=== PATIENT | female | born 1960 | race Caucasian/White ===

== ENCOUNTER 2018-02-11 11:21 | Observation (INO) ==
--- NOTE | 2018-02-11 12:01 | Emergency Department Note ---
Disposition Clinical Impression: Bradycardia Chest pain Qualifiers: Chest pain type: unspecified Qualified Code(s): R07.9 - Chest pain, unspecified Disposition: Admitted As Inpatient Condition: Good Forms: ED Satisfaction Letter Time of Disposition: 14:47 Chest Pain HPI - General Chief Complaint: ED Chest Pain Stated Complaint: chest pain Time Seen by Provider: 02/11/18 11:36 Source: patient Limitations: no limitations Vital Signs Reviewed: Yes Nursing Notes Reviewed: Yes - History of Present Illness HPI Narrative: 58-year-old white female presents with chest pain. Describes chest pressure in the middle of her chest for a couple weeks that is constant and intermittently worse with lying down flat also describes left "chest pain above the heart" that started last night. She had 6 episodes of stabbing pain that occurred randomly. Mid chest pain and left chest pain do not occur together. Patient reports associated symptoms of headache, lightheadedness, and nausea without vomiting. Patient went to her PCP Dr. Mcknight for the chest pressure and was told that she has a low heart rate in the 50s. They got an EKG which was normal. They are currently in the process of getting insurance approval for a heart monitor. Patient currently has a UTI for which she is taking clindamycin and Macrobid. Denies shortness of breath, fever, syncope, swelling, numbness, tingling. Former smoker, quit in 1998. Occasional wine, denies drugs. Patient reports medical history of fibromyalgia and colectomy due to diverticulitis. Denies diabetes, hypertension, hyperlipidemia, any family history of heart disease. Severity scale (1-10): 2 - Related Data Home Medications Medication Instructions Recorded Confirmed No Known Home Drugs 07/31/17 07/31/17 Allergies Allergy/AdvReac Type Severity Reaction Status Date / Time nitroglycerin Allergy Severe See Verified 02/11/18 14:34 Comments acetaminophen [From Percocet] Allergy Itching Verified 07/31/17 09:57 ciprofloxacin [From Cipro] Allergy See Verified 07/31/17 09:57 Comments codeine Allergy See Verified 07/31/17 09:57 Comments metronidazole [From Flagyl] Allergy See Verified 07/31/17 09:57 Comments ofloxacin [From Floxin] Allergy See Verified 07/31/17 09:57 Comments Oxycodone [From Percocet] Allergy Itching Verified 01/25/18 09:57 tegaserod [From Zelnorm] Allergy See Verified 07/31/17 09:57 Comments aspirin AdvReac Syncope Verified 02/11/18 13:13 All systems ED: reviewed and negative except as stated. Chest Pain PMH - Past Medical History Medical history: Reports: asthma, fibromyalgia, other Surgical history: Reports: other Psychiatric history: Reports: no psych history HEEL STAINER history: Reports: no HEEL STAINER history - Social History Smoking Status: Former smoker Alcohol use: Reports: occasionally Drug use: Reports: none Physical Exam - General Limitations: no limitations General appearance: alert, in no apparent distress - Head Head exam: atraumatic, normocephalic, normal inspection - Eye Eye exam: Present: PERRL, EOMI. Absent: normal appearance (Conjunctival hyperemia ) - Neck Neck exam: Present: normal inspection, full ROM, trachea midline - Chest Chest inspection: Present: normal inspection, symmetric chest wall rise. Absent : tenderness (No pain to palpation of the mid chest or left chest.) - Respiratory Respiratory exam: Present: normal lung sounds bilaterally. Absent: respiratory distress - Cardiovascular Cardiovascular exam: Present: regular rate, normal rhythm, normal heart sounds - Abdominal Exam Abdominal exam: Present: soft, Non-Tender, normal bowel sounds. Absent: tenderness, distention, guarding, rebound, rigidity - Extremities Exam Extremities exam: Present: normal inspection, full ROM. Absent: tenderness, pedal edema - Neurological Exam Neurological exam: Present: alert, oriented X3, CN II-XII intact - Psychiatric Psychiatric exam: Present: normal affect, normal mood - Skin Skin exam: Present: warm, dry, intact, normal color Course Course Narrative: 58-year-old female presents for chest pain. Patient denies any cardiovascular history. Patient is alert and oriented, hemodynamically stable, and nontoxic appearance. Heart rate is 70. Cardiovascular and lung exam are unremarkable. Will order cardiac workup, D-dimer, hepatic panel and lipase. - Reevaluation(s) Reevaluation #1: Cardiac and GI workup is negative. Patient still complaining of chest pressure. Dr. Benites spoke with patient, will provide aspirin and GI cocktail, and repeat troponin at 2 hour timepoint. Family is now in the room, states that patient will fall asleep during conversation. Patient has a documented history of allergy to aspirin. Patient states that she passed out when she took aspirin at age 17 and was told that she has an allergy. Will provide the aspirin and watch for syncope or any other adverse effects. Time: 13:14 Reevaluation #2: Checking on patient at 13:45, patient states no change in chest pressure. Did not have syncope or any other adverse effect from aspirin. Will provide one dose of sublingual nitroglycerin. Patient got hypotensive and heart rate decreased to 15. Patient was given 0.5 atropine and heart rate increased to 88. Repeat EKG shows normal sinus rhythm with heart rate 88. Spoke with key punch teacher Dr. Lopez who recommended evaluation by hospitalist rather than key punch teacher. Spoke with hospitalist Dr. Reyes who agrees to admit. Informed patient of admission. Patient is laughing and talking on the phone. Patient voiced understanding and is agreeable to admission. Time: 14:47 Vital Signs Temperature 97.9 F 02/11/18 11:22 Pulse Rate 71 02/11/18 11:22 Respiratory Rate 18 02/11/18 11:22 Blood Pressure 116/71 02/11/18 11:22 O2 Sat by Pulse Oximetry 97 02/11/18 11:22 Temperature 97.9 F 02/11/18 11:38 Pulse Rate 67 02/11/18 11:45 Respiratory Rate 16 02/11/18 11:45 Blood Pressure 131/74 02/11/18 11:45 O2 Sat by Pulse Oximetry 96 02/11/18 11:45 Oxygen Delivery Oxygen Delivery Room Air Chest Pain - Medical Records Medical records reviewed: Yes I reviewed the patient's medical records. - Lab Data Lab results reviewed: Yes I reviewed the patient's lab results. Result diagrams: 02/11/18 11:24 Lab Results 02/11/18 02/11/18 Range/Units 11:24 11:53 WBC 6.2 (4.3-11.1) K/mcL RBC 4.11 (3.82-4.97) M/mcL Hgb 12.5 (11.5-15.4) g/dL Hct 38.2 (35.3-44.9) % MCV 92.9 (83.0-100.0) fL MCH 30.4 (28.0-33.3) pg MCHC 32.7 (31.6-35.5) g/dL RDW 13.2 (11.5-14.5) % Plt Count 235 (140-400) K/mcL MPV 9.1 L (9.4-12.4) fL Immature Gran % 0.2 (0-4) % Seg Neutrophils % 78.3 % Lymphocytes % 13.5 % Monocytes % 4.8 % Eosinophils % 2.9 % Basophils % 0.3 % Neutrophils # 4.9 (1.6-8.9) K/mcL Lymphocytes # 0.8 (0.6-4.6) K/mcL Monocytes # 0.3 (0.0-1.3) K/mcL Eosinophils # 0.2 (0.0-0.6) K/mcL Basophils # 0.0 (0.0-0.2) K/mcL D-Dimer 306 (0-500) ng/mLFEU - Radiology Data Radiology results reviewed: Yes I reviewed the patient's radiology results. Chest x-ray 02/11/2018. No acute process. - EKG Data EKG attestation: Yes I reviewed and interpreted this EKG. EKG results narrative: EKG 02/11/2018 11:26. Ectopic atrial rhythm. Heart rate 70. No ST segment elevation or depression. No significant change from prior EKG 09/23/2013. EKG 02/11/2018 14:18. Sinus rhythm. Heart rate 88. No ST segment elevation or depression. No significant change from prior EKG.
[2018-02-11 12:10] LABS: Basophils % 0.3 %; Eosinophils # 0.2 K/mcL (0.0-0.6); Eosinophils % 2.9 %; Hematocrit 38.2 % (35.3-44.9); Hemoglobin 12.5 g/dL (11.5-15.4); Immature Granulocytes % 0.2 % (0-4); Lymphocytes # 0.8 K/mcL (0.6-4.6); Lymphocytes % 13.5 %; Mean Corpuscular HGB Conc 32.7 g/dL (31.6-35.5); Mean Corpuscular Hemoglobin 30.4 pg (28.0-33.3); Mean Corpuscular Volume 92.9 fL (83.0-100.0); Mean Platelet Volume 9.1 fL (9.4-12.4); Monocytes # 0.3 K/mcL (0.0-1.3); Monocytes % 4.8 %; Neutrophils # 4.9 K/mcL (1.6-8.9); Platelet Count 235 K/mcL (140-400); Red Blood Count 4.11 M/mcL (3.82-4.97); Red Cell Distribution Width 13.2 % (11.5-14.5); Segmented Neutrophils % 78.3 %
[2018-02-11 12:30] LABS: Troponin I < 0.03 ng/mL (< 0.04)
[2018-02-11 12:53] LABS: Alanine Aminotransferase 26 Units/L (7-52); Albumin 4.1 g/dL (3.5-5.7); Albumin/Globulin Ratio 1.4 (1.1-2.2); Alkaline Phosphatase 89 Units/L (34-104); Aspartate Amino Transferase 21 Units/L (13-39); BUN/Creatinine Ratio 10 (6-26); Bilirubin,Direct 0.1 mg/dL (0.0-0.2); Bilirubin,Indirect 0.6 mg/dL (0.0-1.2); Bilirubin,Total 0.7 mg/dL (0.3-1.0); Blood Urea Nitrogen 8 mg/dL (6-20); Calcium 9.4 mg/dL (8.6-10.3); Carbon Dioxide 27 mEq/L (23-29); Chloride 105 mEq/L (98-107); Globulin 2.9 g/dL (2.4-3.5); Glucose 95 mg/dL (70-105); Lipase 35 Units/L (11-82); Osmolality,Calculated 288 (280-300); Potassium 3.6 mEq/L (3.5-5.1); Sodium 140 mEq/L (136-145); eGFR For Non-African Americans > 60 (> 60)
[2018-02-11] MEDS ORDERED: Aspirin 81 MG TAB.CHEW PO STA (12:59)
[2018-02-11] MEDS ORDERED: GI Cocktail 40 ML EACH PO ONE (13:00)
--- NOTE | 2018-02-11 13:23 | Emergency Department Note ---
Disposition Clinical Impression: Chest pain Qualifiers: Chest pain type: unspecified Qualified Code(s): R07.9 - Chest pain, unspecified Disposition: Still a Patient Referrals: Eagle Mcknight MD [Primary Care Provider] - Forms: ED Satisfaction Letter General Adult HPI - General Chief complaint: ED Chest Pain Stated complaint: chest pain Time Seen by Provider: 02/11/18 11:36 Source: patient Limitations: no limitations - History of Present Illness Pain Scale: 2 - Related Data Home Medications Medication Instructions Recorded Confirmed No Known Home Drugs 07/31/17 07/31/17 Allergies Allergy/AdvReac Type Severity Reaction Status Date / Time nitroglycerin Allergy Severe See Verified 02/11/18 14:34 Comments acetaminophen [From Percocet] Allergy Itching Verified 07/31/17 09:57 ciprofloxacin [From Cipro] Allergy See Verified 07/31/17 09:57 Comments codeine Allergy See Verified 07/31/17 09:57 Comments metronidazole [From Flagyl] Allergy See Verified 07/31/17 09:57 Comments ofloxacin [From Floxin] Allergy See Verified 07/31/17 09:57 Comments Oxycodone [From Percocet] Allergy Itching Verified 07/31/17 09:57 tegaserod [From Zelnorm] Allergy See Verified 07/31/17 09:57 Comments aspirin AdvReac Syncope Verified 02/11/18 13:13 Past Medical History - Past Medical History Medical history: Reports: asthma, fibromyalgia, other Surgical history: Reports: other Psychiatric history: Reports: no psych history 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 She was originally at hr 90s and blood pressure sysotlic of 120s. Anisa stated she started to "feel bad" and started to have bradycardia with a heart rate of 30s on the monitor and then patient went down to 15, never became asystolic as she was conscious and talking during the episodes. We deliver 0.5 mg atropine and pushed 1L of fluids and she returned to a heart rate of 90s. She states that her chest pain has resolved, but is slowly comnig back now. I believe this reaction is likley due to the nitro trial and have advised patient not to medicate with nitro in the future. Aleksandra states that she has done this once before and it was after anesthesia adminsitration for a endoscope and that she became bradycardiac and then returned to normal rate. Anisa will be admittd to [facility]. [facility]ds has been consulted Time: 14:41 Vital Signs Temperature 97.9 F 02/11/18 11:22 Pulse Rate 71 02/11/18 11:22 Respiratory Rate 18 02/11/18 11:22 Blood Pressure 116/71 02/11/18 11:22 O2 Sat by Pulse Oximetry 97 02/11/18 11:22 Temperature 97.9 F 02/11/18 11:38 Pulse Rate 85 02/11/18 14:26 Respiratory Rate 16 02/11/18 14:26 Blood Pressure 115/67 02/11/18 14:26 O2 Sat by Pulse Oximetry 100 02/11/18 14:26 Oxygen Delivery Oxygen Delivery Room Air Medical Decision Making - Lab Data Result diagrams: 02/11/18 11:24 02/11/18 11:24 Lab Results 02/11/18 02/11/18 02/11/18 Range/Units 11:24 11:24 11:53 WBC 6.2 (4.3-11.1) K/mcL RBC 4.11 (3.82-4.97) M/mcL Hgb 12.5 (11.5-15.4) g/dL Hct 38.2 (35.3-44.9) % MCV 92.9 (83.0-100.0) fL MCH 30.4 (28.0-33.3) pg MCHC 32.7 (31.6-35.5) g/dL RDW 13.2 (11.5-14.5) % Plt Count 235 (140-400) K/mcL MPV 9.1 L (9.4-12.4) fL Immature Gran % 0.2 (0-4) % Seg Neutrophils % 78.3 % Lymphocytes % 13.5 % Monocytes % 4.8 % Eosinophils % 2.9 % Basophils % 0.3 % Neutrophils # 4.9 (1.6-8.9) K/mcL Lymphocytes # 0.8 (0.6-4.6) K/mcL Monocytes # 0.3 (0.0-1.3) K/mcL Eosinophils # 0.2 (0.0-0.6) K/mcL Basophils # 0.0 (0.0-0.2) K/mcL D-Dimer 306 (0-500) ng/mLFEU Sodium 140 (136-145) mEq/L Potassium 3.6 (3.5-5.1) mEq/L Chloride 105 (98-107) mEq/L Carbon Dioxide 27 (23-29) mEq/L BUN 8 (6-20) mg/dL Creatinine 0.78 (0.60-1.20) mg/dL Est GFR ( Amer) > 60 (> 60) Est GFR (Non-Af Amer) > 60 (> 60) BUN/Creatinine Ratio 10 (6-26) Glucose 95 (70-105) mg/dL Calculated Osmolality 288 (280-300) Calcium 9.4 (8.6-10.3) mg/dL Total Bilirubin 0.7 (0.3-1.0) mg/dL Direct Bilirubin 0.1 (0.0-0.2) mg/dL Indirect Bilirubin 0.6 (0.0-1.2) mg/dL AST 21 (13-39) Units/L ALT 26 (7-52) Units/L Alkaline Phosphatase 89 (34-104) Units/L Troponin I < 0.03 (< 0.04) ng/mL Serum Total Protein 7.0 (6.4-8.9) g/dL Albumin 4.1 (3.5-5.7) g/dL Globulin 2.9 (2.4-3.5) g/dL Albumin/Globulin Ratio 1.4 (1.1-2.2) Lipase 35 (11-82) Units/L 02/11/18 Range/Units 13:26 WBC (4.3-11.1) K/mcL RBC (3.82-4.97) M/mcL Hgb (11.5-15.4) g/dL Hct (35.3-44.9) % MCV (83.0-100.0) fL MCH (28.0-33.3) pg MCHC (31.6-35.5) g/dL RDW (11.5-14.5) % Plt Count (140-400) K/mcL MPV (9.4-12.4) fL Immature Gran % (0-4) % Seg Neutrophils % % Lymphocytes % % Monocytes % % Eosinophils % % Basophils % % Neutrophils # (1.6-8.9) K/mcL Lymphocytes # (0.6-4.6) K/mcL Monocytes # (0.0-1.3) K/mcL Eosinophils # (0.0-0.6) K/mcL Basophils # (0.0-0.2) K/mcL D-Dimer (0-500) ng/mLFEU Sodium (136-145) mEq/L Potassium (3.5-5.1) mEq/L Chloride (98-107) mEq/L Carbon Dioxide (23-29) mEq/L BUN (6-20) mg/dL Creatinine (0.60-1.20) mg/dL Est GFR ( Amer) (> 60) Est GFR (Non-Af Amer) (> 60) BUN/Creatinine Ratio (6-26) Glucose (70-105) mg/dL Calculated Osmolality (280-300) Calcium (8.6-10.3) mg/dL Total Bilirubin (0.3-1.0) mg/dL Direct Bilirubin (0.0-0.2) mg/dL Indirect Bilirubin (0.0-1.2) mg/dL AST (13-39) Units/L ALT (7-52) Units/L Alkaline Phosphatase (34-104) Units/L Troponin I < 0.03 (< 0.04) ng/mL Serum Total Protein (6.4-8.9) g/dL Albumin (3.5-5.7) g/dL Globulin (2.4-3.5) g/dL Albumin/Globulin Ratio (1.1-2.2) Lipase (11-82) Units/L Attestation Statement - Attestation Attestation: I examined this patient and my medical decision-making was reviewed with the Resident Physician. I agree with the documented findings, disposition and treatment plan as described except to the extent set forth below. 58 year old dominic orozconets to the ED with complanits of chest pressure in the middle of her chest which radites into her epigastrium. She has one risk factor for ACS being her age. PAtinet states that it has been occuring in increasing frequency but not during exertion. Anisa states her only other abdominal surgery was appendectomy and hysterectomy. Anisa is currently on levauqin for UTI. Anisa stats that she is trying to have outpatient followu for cardaic testing. Inital troponin and D-dimer ar negative. WEw ill treat with aSA and GI cocktail to see if it will relieve the symptoms and do a repeat troponin and she is a low risk for ACS. We will re-evlaute.
[2018-02-11] MEDS ORDERED: Nitroglycerin 0.4 MG TAB.SUBL SL PRN (13:47)
[2018-02-11] MEDS ORDERED: 0.9 % Sodium Chloride 1,000 ML ONE (14:14)
[2018-02-11] MEDS ORDERED: *HR* Atropine Sulfate 1 MG/10 ML SYRINGE IVP STA (14:58)
[2018-02-11] MEDS ORDERED: 0.9 % Sodium Chloride 1,000 ML IVC ONE ×2 (14:58→23:45)
[2018-02-11] MEDS ORDERED: Naloxone 0.4 MG/ML INJ IVP PRN (16:01)
[2018-02-11] MEDS ORDERED: Acetaminophen 325 MG TABLET PO PRN (16:01)
[2018-02-11] MEDS ORDERED: *HR* Atropine Sulfate 1 MG/10 ML SYRINGE IV ONE (16:09)
--- NOTE | 2018-02-11 16:36 | Internal Med History&Physical ---
Date of Encounter: 02/11/18 Time of Encounter: 16:32 Internal Medicine - H&P: HPI Chief complaint: Chest pain Admitted From: Emergency Dept Plans for Post Hospital Care: Home History of present illness: Ms. Mathews is a 58 year old female patient with no significant past medical history who presented to the ER with complaints of chest pain. Has been going on for couple of weeks now and has become more persistent. She reports pain as central in location and sometimes radiates to the left side of the chest. Over the past couple of days it has been present pretty much throughout the day. 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 She came to the ER and was given nitroglycerin which she has previously taken without any issues. Soon after she was given nitroglycerin in the ER, her heart rate went down and patient became hypotensive. She was given atropine with improvement in her heart rate. Patient reports that she rates the fitness monitor with heart rate and she has noted that her heart rate has been in the 40s sometimes. She says that her chest pain improved when her heart rate improved after she received atropine and it has returned now. She denies any dizziness or lightheadedness. She denies any palpitations. She had seen her primary care provider for her episodes of low heart rate and was being referred to cardiology for Holter monitor, stress test. She also notes that she had trouble coming out of anesthesia when she had sinus surgery and had a Holter monitor placed at that time. No abnormalities were found but the supervisor publications then had prescribed nitroglycerin for her which seemed to improve her symptoms. She had no issues taking nitroglycerin at that time. She has had other surgeries since then without any issues with anesthesia. She denies any cough or shortness of breath. Denies any dizziness at this time. She does have a headache. She also reports an episode of intense pain in the left side of the chest that took her breath away. She has recently been on antibiotics for tooth infection and UTI.-Clindamycin and Macrobid. Past Med Surg Social Fam HX - Past Medical History Attestation: Yes The following information was validated with the patient. Source: patient Medical history: asthma, fibromyalgia, other Additional medical history: diverticulitis, constipation Psychiatric history: no psych history - Past Surgical History Surgical History: other Additional surgical history: bladder tuck, rectocele, carpel tunnel, sinus surgery - Social History Smoking Status: Former smoker Smokeless Tobacco Status: No Alcohol use: occasionally Drug use: none - Additional Family History Additional family history: Her mother had a stroke and maternal aunt had episodes of angina Internal Medicine - H&P: Meds Azelastine 0.1% Nasal Roselle [Astelin] 1 spr NS BID 02/11/18 [History] Cetirizine HCl [Zyrtec] 10 mg PO DAILY PRN 02/11/18 [History] Clindamycin HCl [Clindamycin HCl] 150 mg PO TID 02/11/18 [History] Cranberry Conc/C/Bacill Coag [Azo Cranberry Tablet] 1 tab PO Q12H 02/11/18 [ History] Loratadine [Claritin] 10 mg PO DAILY PRN 02/11/18 [History] Mometasone Furoate [Nasonex] 1 spr NS BID 02/11/18 [History] Nitrofurantoin (BID) [Macrobid] 100 mg PO BID 02/11/18 [History] 3 Allergy/AdvReac Type Severity Reaction Status Date / Time nitroglycerin Allergy Severe See Verified 02/11/18 14:34 Comments acetaminophen [From Percocet] Allergy Itching Verified 07/31/17 09:57 ciprofloxacin [From Cipro] Allergy See Verified 07/31/17 09:57 Comments codeine Allergy See Verified 07/31/17 09:57 Comments metronidazole [From Flagyl] Allergy See Verified 07/31/17 09:57 Comments ofloxacin [From Floxin] Allergy See Verified 07/31/17 09:57 Comments Oxycodone [From Percocet] Allergy Itching Verified 07/31/17 09:57 tegaserod [From Zelnorm] Allergy See Verified 07/31/17 09:57 Comments aspirin AdvReac Syncope Verified 02/11/18 13:13 All Systems PM: A 10-system review of systems was performed and is negative for pertinent findings except as documented above in the HPI. - Constitutional Constitutional: no chills, no fever(s), no night sweats - EENT Eyes: no change in vision, no discharge, no pain, no photophobia Ears: no ear discharge, no ear pain, no tinnitus Nose, mouth and throat: no dysphagia, no nasal discharge, no neck pain, no sore throat - Cardiovascular Cardiovascular ROS IM: chest pain, lightheadedness, no diaphoresis, no dyspnea, no palpitations, no syncope - Respiratory Respiratory: no cough, no dyspnea, no wheezing, no excessive phlegm production - Gastrointestinal Gastrointestinal: no abdominal pain, no diarrhea, no hematemesis, no hematochezia, no melena, no nausea, no vomiting - Genitourinary Genitourinary: no change in urinary stream, no dysuria, no flank pain, no hematuria - Musculoskeletal Musculoskeletal ROS IM: no numbness, no tingling - Integumentary Integumentary IM: no rash, no unusual bruising - Neurological Neurological ROS: no confusion, no convulsions, no focal weakness, no numbness, no tingling, no tremor(s) - Hematologic/Lymphatic Hematologic/Lymphatic: no easy bruising - Constitutional Vitals: Temp Pulse Resp BP Pulse Ox 97.9 F 64 15 120/57 98 02/11/18 15:33 02/11/18 15:33 02/11/18 15:33 02/11/18 15:33 02/11/18 15:33 General appearance: Present: cooperative, mild distress, A&O X 3, answers questions appropriately - Head Head exam: Present: atraumatic, normocephalic - Eye Eye exam: Present: EOMI, PERRL, conjuntiva pink, sclera anicteric - Neck Neck exam general surgery: Present: supple, trachea midline. Absent: lymphadenopathy - Respiratory Respiratory exam: Present: CTAB. Absent: accessory muscle use, rales, rhonchi, wheezes - Cardiovascular Cardiovascular exam: Present: RRR, +S1, +S2. Absent: diastolic murmur, gallop, rubs, systolic murmur - GI/Abdominal GI/Abdominal exam: Present: normal bowel sounds, soft, no peritoneal signs. Absent: distended, tenderness - Extremities Exam Extremities exam: Present: warm, radial pulses palpable and symmetrical. Absent : calf tenderness, cyanotic, pedal edema - Neurological Exam Neurological exam: Present: CN II-XII intact, oriented X3, no focal deficits. Absent: facial droop, speech deficit - Psychiatric Psychiatric exam: Present: anxious - Skin Skin exam: Present: dry, intact Internal Med - H&P Results - Labs CBC & Chem 7: 02/11/18 11:24 02/11/18 11:24 - EKG Data EKG shows normal: sinus rhythm - EKG Data EKG comments: 02/11/18 16:41 Reviewed EKGs. Initial EKG showed ectopic atrial rhythm without any AV block. Repeat EKG shows normal sinus rhythm. - Impressions Impressions Chest X-Ray 02/11/18 11:24 IMPRESSION: No acute process. D/ / Ceasar Cooley MD / Ceasar Cooley MD Interpreting Provider: Ceasar Cooley MD - Assessment and plan (1) Chest pain Current Visit: Yes Status: Acute Assessment and plan: Acute onset chest pain. Atypical symptoms. Will monitor with telemetry. No EKG changes noted. Plan for stress test tomorrow if troponins continue to be negative. 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 Stress could be playing a role in her chest pain. No improvement with GI cocktail. She did report some improvement when her heart rate improved after she was given atropine. Whether this was related to use of nitroglycerin or atropine is unclear. We will avoid nitroglycerin for now given her adverse reaction while in the ER. We will use morphine if needed to treat pain. Qualifiers: Chest pain type: precordial pain Qualified Code(s): R07.2 - Precordial pain (2) Bradycardia Current Visit: Yes Status: Acute Assessment and plan: Episode of bradycardia while in the ER and reported bradycardia episodes at home. Monitor with telemetry. We will also get 2-D echocardiogram. Check thyroid profile. Consider Holter monitor/event monitor at discharge if no adverse events noted during this hospitalization - Time Spent With Patient Total time spent is greater than 50% in coordination of care (as documented) at patient's floor/unit and/or counseling patient:
[2018-02-11] MEDS ORDERED: Loratadine 10 MG TABLET PO PRN (16:51)
[2018-02-11] MEDS ORDERED: NON-FORMULARY MEDICATION 1 EACH EACH (Cetirizine Hcl [Zyrtec] 10 MG) PO PRN (16:51)
[2018-02-11] MEDS: [UNRECOGNIZED DRUG - OTHER] PO SCH (19:15)
[2018-02-11] MEDS ORDERED: Ondansetron 4 MG/2 ML VIAL IVP PRN (19:40)
[2018-02-11] MEDS: Nitrofurantoin (BID) 100 MG CAPSULE PO SCH (19:58)
[2018-02-11] MEDS: Azelastine 0.1% Nasal Spray 30 ML BOTTLE NS SCH (19:59)
[2018-02-11] MEDS: Fluticasone Propionate Nasal 50 MCG/SPRAY BOTTLE NS SCH (20:00)
[2018-02-11] MEDS ORDERED: Ibuprofen 200 MG TABLET PO PRN (23:47)
[2018-02-12] MEDS: [UNRECOGNIZED DRUG - OTHER] PO SCH (05:09)
[2018-02-12] MEDS ORDERED: Regadenoson 0.4 MG/5 ML SYRINGE IVP ONE (05:40)
[2018-02-12 05:47] LABS: Chol/HDL Ratio 2.9 (0-4.9)
[2018-02-12 05:59] LABS: Thyroid Stimulating Hormone 1.478 mcIU/mL (0.340-5.600)
--- NOTE | 2018-02-12 06:42 | Electrocardiograph Report ---
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
--- NOTE | 2018-02-12 08:02 | Electrocardiograph Report ---
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
[2018-02-12] MEDS: Fluticasone Propionate Nasal 50 MCG/SPRAY BOTTLE NS SCH (09:40)
[2018-02-12] MEDS: Azelastine 0.1% Nasal Spray 30 ML BOTTLE NS SCH (09:40)
[2018-02-12] MEDS: Nitrofurantoin (BID) 100 MG CAPSULE PO SCH (09:41)
--- NOTE | 2018-02-12 14:25 | Discharge Summary ---
- NOTES TO OUTPATIENT PROVIDER Notes to Outpatient Provider: Patient was hospitalized after she presented to the ER with complaints of chest pain. She was evaluated with an EKG which did not show any acute ST segment changes. She received nitroglycerin in the ER and then suddenly became bradycardic and hypotensive with decreasing consciousness. She was immediately given atropine with improvement in her heart rate. She has never had this kind of reaction to nitroglycerin but she was observed in the hospital. So far she has not had repeat episodes of severe bradycardia. Her thyroid hormones have been normal. Troponins have also been negative. She underwent cardiac stress test today which showed no signs of ischemia. Her echocardiogram shows normal ejection fraction. At this time patient is clinically stable to discharge. Her chest pain could be related to increased stress as patient has been working night shifts without proper sleep for the past 18 months. Recommend treatment and counseling for this as outpatient. Recommend outpatient follow-up with cardiology with Holter monitor/ event monitor for further evaluation. Patient also reports nausea which is chronic and has been taking antinausea medications for the past 3 months. At this time I would recommend consultation with GI for possible upper GI endoscopy as outpatient. Orders not resulted at time of discharge: Pending orders 02/11/18 16:48 NM josé miguel perf SPECT multi [NM] Routine Date of Encounter: 02/12/18 Time of Encounter: 14:23 - Discharge Diagnosis (1) Chest pain Priority: Primary Status: Acute Qualifiers: Chest pain type: precordial pain Qualified Code(s): R07.2 - Precordial pain (2) Bradycardia Priority: Secondary Status: Acute Hospital course: Ms. Mathews is a 58 year old female Patient with history of asthma, fibromyalgia was hospitalized after she presented to the ER with complaints of chest pain. She was evaluated with an EKG which did not show any acute ST segment changes. She received nitroglycerin in the ER and then suddenly became bradycardic and hypotensive with decreasing consciousness. She was immediately given atropine with improvement in her heart rate. She has never had this kind of reaction to nitroglycerin but she was observed in the hospital. So far she has not had repeat episodes of severe bradycardia. Her thyroid hormones have been normal. Troponins have also been negative. She underwent cardiac stress test today which showed no signs of ischemia. Her echocardiogram shows normal ejection fraction. At this time patient is clinically stable to discharge. Recommend outpatient follow-up with cardiology with Holter monitor/event monitor for further evaluation. Patient also reports nausea which is chronic and has been taking antinausea medications for the past 3 months. At this time I would recommend consultation with GI for possible upper GI endoscopy as outpatient. Discharge discussed with: patient, family, nurse - Time Spent with Patient Total time spent providing and/or coordinating discharge services: Less than 30 minutes (25 min) - Discharge Medications Home Medications: Azelastine 0.1% Nasal [place] [Astelin] 1 spr NS BID 02/11/18 [History] Cetirizine HCl [Zyrtec] 10 mg PO DAILY PRN 02/11/18 [History] Clindamycin HCl 150 mg PO TID 02/11/18 [History] Cranberry Conc/C/Bacill Coag [Azo Cranberry Tablet] 1 tab PO Q12H 02/11/18 [ History] Mometasone Furoate [Nasonex] 1 spr NS BID 02/11/18 [History] Nitrofurantoin (BID) [Macrobid] 100 mg PO BID 02/11/18 [History] Allergies/Adverse Reactions: 3 Allergy/AdvReac Type Severity Reaction Status Date / Time nitroglycerin Allergy Severe See Verified 02/11/18 14:34 Comments acetaminophen [From Percocet] Allergy Itching Verified 07/31/17 09:57 ciprofloxacin [From Cipro] Allergy See Verified 07/31/17 09:57 Comments codeine Allergy See Verified 07/31/17 09:57 Comments metronidazole [From Flagyl] Allergy See Verified 07/31/17 09:57 Comments ofloxacin [From Floxin] Allergy See Verified 07/31/17 09:57 Comments Oxycodone [From Percocet] Allergy Itching Verified 07/31/17 09:57 tegaserod [From Zelnorm] Allergy See Verified 07/31/17 09:57 Comments aspirin AdvReac Syncope Verified 02/11/18 13:13 Date of admission: 02/11/18 14:54 Primary care physician: Eagle Mcknight MD Discharging clinician: Iesha Nick Anticipated date of discharge: 02/12/18 - Constitutional Vitals: Temp Pulse Resp BP Pulse Ox 98.2 F 71 17 89/45 96 02/12/18 11:06 02/12/18 11:06 02/12/18 11:06 02/12/18 11:09 02/12/18 11:06 General appearance: Present: cooperative, A&O X 3, pleasant, no acute distress, answers questions appropriately - Neck Neck exam general surgery: Present: supple, trachea midline. Absent: lymphadenopathy - Respiratory Respiratory exam: Present: CTAB. Absent: accessory muscle use, rales, rhonchi, wheezes - Cardiovascular Cardiovascular exam: Present: RRR, +S1, +S2. Absent: diastolic murmur, gallop, rubs, systolic murmur - GI/Abdominal GI/Abdominal exam: Present: normal bowel sounds, soft, no peritoneal signs. Absent: distended, tenderness - Extremities Exam Extremities exam: Present: warm, radial pulses palpable and symmetrical. Absent : calf tenderness, cyanotic, pedal edema - Patient Status Disposition: Home, Self-Care Condition: Good Functional capacity at discharge: independent ambulation Overall status at discharge: patient is progressing back to baseline - Discharge Instructions Instructions: Chest Pain (DC) Follow Up With: Eagle Mcknight MD [Primary Care Provider] - 03/05/18 10:00 am (1-2 weeks) - Diet and Activity Activity: increase activity as tolerated Diet: advance to your usual diet
[2018-02-12 15:24] VITALS: BP 109/70
--- NOTE | 2018-02-12 16:17 | Electrocardiograph Report ---
[address] [place] [address] Test Date: 2018-02-12 Pat Name: Rajani Mathews Department: 113 Room: 3B37 Gender: F [employer]ing [employer]ic: : 1960 Requested By: Iesha Nick Order Number: [id number] Reading MD: Ana Lopez Measurements Intervals [place] Rate: 70 P: -34 ND: 146 QRS: 16 QRSD: 90 T: 12 QT: 392 QTc: 412 Interpretive Statements SINUS RHYTHM NONSPECIFIC ST ABNORMALITIES Electronically Signed On 02-12-2018 16:16:15 EDT by Ana Lopez
--- NOTE | 2018-02-12 16:21 | Electrocardiograph Report ---
[address] [place] [address] Test Date: 2018-02-11 Pat Name: Rajani Mathews Department: 113 Room: 3B Gender: F Vp [employer]: [id number] : 1960 Requested By: Ilana Reyes Order Number: [id number] Reading MD: Ana Lopez Measurements Intervals [place] Rate: 63 P: -8 [place]: 133 QRS: 29 QRSD: 85 T: 35 QT: 407 QTc: 415 Interpretive Statements ECTOPIC ATRIAL RHYTHM NONSPECIFIC ST ABNORMALITIES Electronically Signed On 02-12-2018 16:19:54 EDT by Ana Lopez
== END 2018-02-12 16:10 | disposition home or self-care (01) ==
LOC: 3BNU 11:21 → EMEROO 11:21 → 3BNU 15:11
PROVIDERS: ADMIT Internal Medicine; ATTEND Internal Medicine

== ENCOUNTER 2018-03-15 16:29 | Observation (INO) ==
--- NOTE | 2018-03-15 17:05 | Emergency Department Note ---
Disposition Clinical Impression: TIA (transient ischemic attack) Chest pain Qualifiers: Chest pain type: precordial pain Qualified Code(s): R07.2 - Precordial pain Disposition: Admitted As Inpatient Condition: Good Instructions: Chest Pain (ED), Transient Ischemic Attack (ED) Referrals: Eagle Mcknight MD [Primary Care Provider] - Forms: ED Satisfaction Letter Time of Disposition: 18:38 General Adult HPI - General Chief complaint: ED Chest Pain Stated complaint: Chest Pain Nausea Time Seen by Provider: 03/15/18 16:54 Source: patient Mode of arrival: ambulatory Limitations: no limitations - History of Present Illness HPI Narrative: This is a 58-year-old female who comes to emergency department with several complaints. She states that she has had midsternal chest pain that started about 2 hours prior to arrival. She also reports a headache that is more in the crown of her head, compared to a for head location of her typical headaches. She reports that 90 minutes prior to arrival she had the sudden onset of a 1 hour episode of confusion with dysarthria, where her friend states that her speech was slurred. She also reports bilateral facial pain along the mandibles. Pain Scale: 4 - Related Data Home Medications Medication Instructions Recorded Confirmed Azelastine 0.1% Nasal [place] 1 spr NS BID 02/11/18 02/11/18 [Astelin] Cetirizine HCl [Zyrtec] 10 mg PO DAILY PRN 02/11/18 02/11/18 Clindamycin HCl 150 mg PO TID 02/11/18 02/11/18 Cranberry Conc/C/Bacill Coag [Azo 1 tab PO Q12H 02/11/18 02/11/18 Cranberry Tablet] Mometasone Furoate [Nasonex] 1 spr NS BID 02/11/18 02/11/18 Nitrofurantoin (BID) [Macrobid] 100 mg PO BID 02/11/18 02/11/18 Allergies Allergy/AdvReac Type Severity Reaction Status Date / Time nitroglycerin Allergy Severe See Verified 02/11/18 14:34 Comments acetaminophen [From Percocet] Allergy Itching Verified 07/31/17 09:57 ciprofloxacin [From Cipro] Allergy See Verified 07/31/17 09:57 Comments codeine Allergy See Verified 07/31/17 09:57 Comments metronidazole [From Flagyl] Allergy See Verified 07/31/17 09:57 Comments ofloxacin [From Floxin] Allergy See Verified 07/31/17 09:57 Comments Oxycodone [From Percocet] Allergy Itching Verified 07/31/17 09:57 tegaserod [From Zelnorm] Allergy See Verified 07/31/17 09:57 Comments aspirin AdvReac Syncope Verified 02/11/18 13:13 All systems ED: reviewed and negative except as stated. Constitutional: Reports: other (Confusion) Cardiovascular: Reports: chest pain Neurological: Reports: headache, confusion, other (Dysarthria) Past Medical History - Past Medical History Medical history: Reports: asthma, fibromyalgia, other Surgical history: Reports: other Psychiatric history: Reports: no psych history CURVE CLEANER history: Reports: no CURVE CLEANER history - Social History Smoking Status: Former smoker Smokeless Tobacco Status: No Alcohol use: Reports: occasionally Drug use: Reports: none Physical Exam - General Limitations: no limitations General appearance: alert, in no apparent distress - Head Head exam: atraumatic, normocephalic, normal inspection - Eye Eye exam: Present: normal appearance, PERRL, EOMI. Absent: scleral icterus, conjunctival injection - Chest Chest inspection: Present: normal inspection, symmetric chest wall rise - Respiratory Respiratory exam: Present: normal lung sounds bilaterally - Cardiovascular Cardiovascular exam: Present: normal rhythm, bradycardia, normal heart sounds - Abdominal Exam Abdominal exam: Present: soft, Non-Tender. Absent: tenderness, distention, guarding, rebound, rigidity - Extremities Exam Extremities exam: Present: normal inspection, full ROM. Absent: tenderness, pedal edema - Neurological Exam Neurological exam: Present: alert, oriented X3, CN II-XII intact. Absent: motor sensory deficit - Expanded Neurological Exam Patient oriented to: Present: person, place, time Speech: Present: fluid speech Cranial nerves: EOM function (II, III, IV, ): Normal, facial sensation (V): Normal, facial palsy (VII): Normal, gag reflex (IX): Normal, spinal accessory function (XI): Normal, tongue deviation (XII): Normal Cerebellar function: finger to nose: Normal, heel to phelps: Normal Motor strength - LUE: 5/5 Motor strength - RUE: 5/5 Motor strength - LLE: 5/5 Motor strength - RLE: 5/5 Upper motor neuron exam: pronator drift: Absent bilaterally - Psychiatric Psychiatric exam: Present: normal affect, normal mood - Skin Skin exam: Present: warm, dry, intact, normal color Course Course Narrative: This is a 58-year-old female who appears to have sustained a TIA. I am concerned about a possible connection between the apparent TIA and her chest pain. Vital Signs Temperature 97.9 F 03/15/18 16:37 Pulse Rate 61 03/15/18 16:37 Respiratory Rate 16 03/15/18 16:37 Blood Pressure 116/75 03/15/18 16:37 O2 Sat by Pulse Oximetry 97 03/15/18 16:37 Temperature 97.9 F 03/15/18 16:45 Pulse Rate 62 03/15/18 18:21 Respiratory Rate 20 03/15/18 18:21 Blood Pressure 106/65 03/15/18 18:21 O2 Sat by Pulse Oximetry 100 03/15/18 18:21 Oxygen Delivery Oxygen Delivery Room Air Medical Decision Making - MDM Narrative Medical decision making narrative: This is a 58-year-old female with symptoms consistent with a TIA but also with chest pain. Initial workup is unremarkable. I discussed her case with the on- call hospitalist, who accepted her for admission - Lab Data Lab results reviewed: Yes I reviewed the patient's lab results. Lab results narrative: CBC was unremarkable BMP was unremarkable INR was normal 1.0 Troponin was low D-dimer was low Result diagrams: 03/15/18 17:05 03/15/18 17:05 Lab Results 03/15/18 03/15/18 03/15/18 Range/Units 17:05 17:05 17:05 WBC 5.6 (4.3-11.1) K/mcL RBC 4.06 (3.82-4.97) M/mcL Hgb 12.3 (11.5-15.4) g/dL Hct 37.1 (35.3-44.9) % MCV 91.4 (83.0-100.0) fL MCH 30.3 (28.0-33.3) pg MCHC 33.2 (31.6-35.5) g/dL RDW 12.9 (11.5-14.5) % Plt Count 255 (140-400) K/mcL MPV 9.5 (9.4-12.4) fL Immature Gran % 0.2 (0-4) % Seg Neutrophils % 56.1 % Lymphocytes % 34.8 % Monocytes % 7.1 % Eosinophils % 1.4 % Basophils % 0.4 % Neutrophils # 3.2 (1.6-8.9) K/mcL Lymphocytes # 2.0 (0.6-4.6) K/mcL Monocytes # 0.4 (0.0-1.3) K/mcL Eosinophils # 0.1 (0.0-0.6) K/mcL Basophils # 0.0 (0.0-0.2) K/mcL PT 11.2 (9.4-12.1) Seconds INR 1.0 APTT 31.2 (26.0-36.0) Seconds D-Dimer 267 (0-500) ng/mLFEU Sodium 141 (136-145) mEq/L Potassium 3.8 (3.5-5.1) mEq/L Chloride 109 H (98-107) mEq/L Carbon Dioxide 24 (23-29) mEq/L BUN 5 L (6-20) mg/dL Creatinine 0.78 (0.60-1.20) mg/dL Est GFR ( Amer) > 60 (> 60) Est GFR (Non-Af Amer) > 60 (> 60) BUN/Creatinine Ratio 6 (6-26) Glucose 100 (70-105) mg/dL Calculated Osmolality 289 (280-300) Calcium 9.1 (8.6-10.3) mg/dL Troponin I < 0.03 (< 0.04) ng/mL - Radiology Data Radiology results reviewed: Yes I reviewed the patient's radiology results. Chest x-ray was unremarkable CT head was unremarkable - EKG Data EKG #1 EKG attestation: Yes I reviewed and interpreted this EKG. EKG results narrative: EKG shows sinus rhythm, 65 bpm, normal intervals, normal axis, diffuse minimal ST elevation normal T waves Critical Care Time Critical Care Time: Yes Total Critical Care Time: 20 Attestation: Critical care time of 20 minutes was invested independent of separately billable procedures
[2018-03-15 17:21] LABS: Basophils % 0.4 %; Eosinophils # 0.1 K/mcL (0.0-0.6); Eosinophils % 1.4 %; Hematocrit 37.1 % (35.3-44.9); Hemoglobin 12.3 g/dL (11.5-15.4); Immature Granulocytes % 0.2 % (0-4); Lymphocytes % 34.8 %; Mean Corpuscular HGB Conc 33.2 g/dL (31.6-35.5); Mean Corpuscular Hemoglobin 30.3 pg (28.0-33.3); Mean Corpuscular Volume 91.4 fL (83.0-100.0); Mean Platelet Volume 9.5 fL (9.4-12.4); Monocytes # 0.4 K/mcL (0.0-1.3); Monocytes % 7.1 %; Neutrophils # 3.2 K/mcL (1.6-8.9); Platelet Count 255 K/mcL (140-400); Red Blood Count 4.06 M/mcL (3.82-4.97); Red Cell Distribution Width 12.9 % (11.5-14.5); Segmented Neutrophils % 56.1 %
[2018-03-15 17:31] LABS: Prothrombin Time 11.2 Seconds (9.4-12.1)
[2018-03-15 17:33] LABS: Activated Partial Thrombo Time 31.2 Seconds (26.0-36.0)
[2018-03-15 17:40] LABS: BUN/Creatinine Ratio 6 (6-26); Blood Urea Nitrogen 5 mg/dL (6-20); Calcium 9.1 mg/dL (8.6-10.3); Carbon Dioxide 24 mEq/L (23-29); Chloride 109 mEq/L (98-107); Glucose 100 mg/dL (70-105); Osmolality,Calculated 289 (280-300); Potassium 3.8 mEq/L (3.5-5.1); Sodium 141 mEq/L (136-145); Troponin I < 0.03 ng/mL (< 0.04); eGFR For Non-African Americans > 60 (> 60)
[2018-03-15] MEDS ORDERED: *HR* Heparin 5,000 UNIT/ML VIAL IVP ONE (20:52)
[2018-03-15] MEDS ORDERED: Naloxone 0.4 MG/ML INJ IVP PRN (20:52)
[2018-03-15] MEDS ORDERED: *HR* Heparin 5,000 UNIT/ML VIAL IVP PRN ×2 (20:52)
[2018-03-15] MEDS: 0.9 % Sodium Chloride w KCl 20 MEQ/1,000 ML MLS IVC SCH (21:22)
--- NOTE | 2018-03-15 21:30 | Internal Med History&Physical ---
Date of Encounter: 03/15/18 Time of Encounter: 20:00 Internal Medicine - H&P: HPI Chief complaint: near syncope; chest pain; bradycardia Admitted From: Emergency Dept Plans for Post Hospital Care: Home History of present illness: Ms. Mathews is a 58 year old female who presents today with a near syncopal spell. She has had several spells like this over last 5-6 weeks where she has a history of syncope. She has had reported pulses at home in the 30s at times. Today she was feeling lightheaded and dizzy and about to pass out. She complained of some facial numbness, chest pain, at that time, and had some difficulty with her speech. She called her daughter, who is a nurse practitioner, and her daughter advised her to go to the ER right away. In the ER, her workup was negative, including CT of the head and chest x-ray. However , given her recurrent chest pain, she was admitted to hospital service. Of note , she was just hospital his last month with chest pain and had cardiac workup which was negative. Upon my assessment of the patient in the ER, patient and her 2 daughters give a sightly different story. Patient describes recurrent episodes of lightheadedness and dizziness associated with a low heart rate. She and her 2 daughters have noted her pulse rate to be in the 30s and 40s on several occasions at home. During these episodes, she has felt quite lightheaded and dizzy and about to pass out. Additionally, she oftentimes has chest pain during these episodes. This prompted an admission last month where she had a stress test, ECHO, and Holter monitor -- reportedly all negative. I reviewed all these tests and note that her Holter did document heart rate as low as 38 and an average heart rate of 64. Stress test was negative except that she had some subtle chest pain in recovery phase of her stress test. Her ECHO was unremarkable. During my interview and exam, patient remained bradycardic with a heart rate in the 50s. I could not appreciate any discernible P waves on heat plant specialist. As I was examining her, she became quite symptomatic when she sat up from a lying position. I then found her EKG and reviewed it. There was some ST elevation in some leads, albeit not contiguous leads. Nonetheless, given her recurrent chest pain, symptomatic bradycardia, and near syncopal spells, I was concerned about a cardiac source of syncope and possible evolving STEMI. I therefore called Dr. Jenkins and I requested that he review the EKGs with me. He reviewed them, both today's EKG and prior EKG from last month, and agrees that she is not having a STEMI, but that they are somewhat worrisome. He agrees patient would benefit from left heart catheterization and he plans on doing one in the morning tomorrow. If she develops recurring chest pain and rising troponins tonight, however, he might recommend urgent heart catheterization tonight. Meanwhile, we will keep her on heparin drip, Plavix, and keep her NPO in the event she may need an urgent catheterization tonight. I discussed this with the patient and her daughters and they are in agreement with the plan. I appreciate Dr. Jenkins's assistance in this matter as well. Please note: Patient's listed meds are not accurate. She takes no prescribed meds or OTC meds other than OTC Flonase nasal spray. Past Med Surg Social Fam HX - Past Medical History Attestation: Yes The following information was validated with the patient. Source: patient, old records reviewed, obtained from family, other (ER notes) Medical history: asthma, fibromyalgia Additional medical history: diverticulitis; alleriges/sinus problems Psychiatric history: no psych history - Past Surgical History Surgical History: colectomy (partial colectomy for diverticulitis), hysterectomy Additional surgical history: bladder tuck, rectocele, carpel tunnel, sinus surgery - Social History Smoking Status: Former smoker Smokeless Tobacco Status: No Alcohol use: occasionally Drug use: none Occupational status: employed Current living situation: Home - Independent Activity Level: Independent ambulation, Very active Recent Out of Country Travel Within the Last 8 Weeks: No - Family History Mother Living Status: Hx Family Cardiac Disorders: No Hx Family Neurologic Disorders: Yes (stroke) Father Living Status: Hx Family Respiratory Disorders: Yes (COPD) Daughter Living Status: Still Living Hx Family Respiratory Disorders: Yes (PE during ) Internal Medicine - H&P: Meds Azelastine 0.1% Nasal [place] [Astelin] 1 spr NS BID 02/11/18 [History] Cetirizine HCl [Zyrtec] 10 mg PO DAILY PRN 02/11/18 [History] Clindamycin HCl 150 mg PO TID 02/11/18 [History] Cranberry Conc/C/Bacill Coag [Azo Cranberry Tablet] 1 tab PO Q12H 02/11/18 [ History] Mometasone Furoate [Nasonex] 1 spr NS BID 02/11/18 [History] Nitrofurantoin (BID) [Macrobid] 100 mg PO BID 02/11/18 [History] 3 Allergy/AdvReac Type Severity Reaction Status Date / Time nitroglycerin Allergy Severe See Verified 02/11/18 14:34 Comments acetaminophen [From Percocet] Allergy Itching Verified 07/31/17 09:57 ciprofloxacin [From Cipro] Allergy See Verified 07/31/17 09:57 Comments codeine Allergy See Verified 07/31/17 09:57 Comments metronidazole [From Flagyl] Allergy See Verified 07/31/17 09:57 Comments ofloxacin [From Floxin] Allergy See Verified 07/31/17 09:57 Comments Oxycodone [From Percocet] Allergy Itching Verified 07/31/17 09:57 tegaserod [From Zelnorm] Allergy See Verified 07/31/17 09:57 Comments aspirin AdvReac Syncope Verified 02/11/18 13:13 - Constitutional Constitutional: no chills, no fever(s), no night sweats - EENT Eyes: no blurry vision, no change in vision Ears: no ear pain, no tinnitus Nose, mouth and throat: nasal congestion, sinus pressure, no sore throat - Cardiovascular Cardiovascular ROS IM: chest pain, diaphoresis, irregular heart rhythm, lightheadedness, palpitations, syncope - Respiratory Respiratory: dyspnea, no cough, no hemoptysis, no pain on inspiration, no chest congestion, no excessive phlegm production, no change in phlegm color, no pain with cough - Gastrointestinal Gastrointestinal: diarrhea (chronic), heartburn, no abdominal pain, no hematemesis, no hematochezia, no melena, no nausea, no vomiting - Genitourinary Genitourinary: no dysuria, no flank pain, no hematuria - Musculoskeletal Musculoskeletal ROS IM: no arthralgias, no back pain - Integumentary Integumentary IM: no rash, no jaundice - Neurological Neurological ROS: dizziness, paresthesias (facial/perioral -- during episodes of bradycardia), no confusion, no convulsions, no focal weakness, no frequent falls, no headache(s), no vertigo - Psychiatric Psychiatric: no anxiety, no depression - Endocrine Endocrine IM: no cold intolerance, no heat intolerance, no polydipsia, no polyuria - Hematologic/Lymphatic Hematologic/Lymphatic: no easy bruising, no lymphadenopathy - Allergic/Immunologic Allergic/Immunologic: GI upset with certain foods - Constitutional Vitals: Temp Pulse Resp BP Pulse Ox 98.5 F 61 17 126/72 97 03/15/18 21:01 03/15/18 21:01 03/15/18 21:01 03/15/18 21:01 03/15/18 21:01 General appearance: Present: cooperative, mild distress, A&O X 3, no acute distress, answers questions appropriately Exam: currently chest pain free; lightheaded and dizzy with HR dropping in the 40-50's - Head Head exam: Present: atraumatic, normal inspection - Eye Eye exam: Present: EOMI, PERRL. Absent: scleral icterus Pupils: Present: normal accommodation - ENT ENT exam: Present: mucous membranes moist, normal exam, normal oropharynx - Neck Neck exam general surgery: Present: full ROM, supple. Absent: tenderness, nuchal rigidity, thyromegaly - Expanded Neck Exam Neck exam: Absent: carotid bruit - Respiratory Respiratory exam: Present: CTAB. Absent: chest wall tenderness, rales, respiratory distress, rhonchi, wheezes - Cardiovascular Cardiovascular exam: Present: bradycardia (HR in the 50's predominantly during my assessment; appears regular), distant heart sounds, +S1, +S2. Absent: diastolic murmur, systolic murmur - GI/Abdominal GI/Abdominal exam: Present: normal bowel sounds, soft. Absent: guarding, hepatomegaly, mass, rebound, splenomegaly, tenderness - Extremities Exam Extremities exam: Present: full ROM, normal capillary refill, warm, radial pulses palpable and symmetrical. Absent: calf tenderness, joint swelling, pedal edema, tenderness - Back Exam Back exam: Absent: CVA tenderness (L), CVA tenderness (R) - Neurological Exam Neurological exam: Present: alert, CN II-XII intact, oriented X3, no focal deficits, strengths equal and symetr throughout. Absent: motor sensory deficit , facial droop, speech deficit - Psychiatric Psychiatric exam: Present: normal affect, normal mood - Skin Skin exam: Present: dry, intact, warm Internal Med - H&P Results - Labs CBC & Chem 7: 03/15/18 17:05 03/15/18 17:05 Labs: D-Dimer negative (267) - EKG Data -: EKG Interpreted by Myself - EKG Data Prior EKG available for review: yes When compared to previous EKG: there are significant changes EKG comments: 03/15/18 21:38 Sinus rhythm; with ST elevation in lead II but not in III or AVf, questionable ST-T changes in lateral leads -- reviewed and discussed with Dr. Jenkins. - Diagnostic Studies Chest x-ray Status: image reviewed by me (negative) - Assessment and plan (1) Chest pain Current Visit: Yes Status: Acute Assessment and plan: 1. Will keep NPO for possible emergent LHC; otherwise plan for LHC in the morning tomorrow as discussed with Dr. Jenkins. 2. Will trend troponins and EKG's. 3. ECHO performed last month -- reviewed. 4. Will keep on heparin gtt (ACS dose), Plavix (note allergy to ASA), and monitor closely. 5. Avoid BB due to bradycardia. 6. Will order fasting lipid profile and start STATIN. Qualifiers: Chest pain type: chest pain due to myocardial ischemia Ischemic chest pain type: stable angina pectoris Qualified Code(s): I20.8 - Other forms of angina pectoris (2) Bradycardia Current Visit: Yes Status: Acute Assessment and plan: 1. Patient symptomatic with bradycardia, possibly due to ischemia. 2. Work-up as above. 3. If LHC negative, she likely need EPS at some point. 4. Avoid BB or AV janet suppressive medications. (3) DVT prophylaxis Current Visit: Yes Status: Acute Assessment and plan: 1. Heparin gtt as above.
[2018-03-15] MEDS: Heparin 25,000 UNIT/500 ML D5W 25,000 UNIT/500 ML BAG IVC SCH (21:38)
[2018-03-15 21:44] LABS: Hematocrit 38.9 % (35.3-44.9); Mean Corpuscular HGB Conc 33.4 g/dL (31.6-35.5); Mean Corpuscular Volume 92.8 fL (83.0-100.0); Mean Platelet Volume 9.5 fL (9.4-12.4); Platelet Count 248 K/mcL (140-400); Red Blood Count 4.19 M/mcL (3.82-4.97); Red Cell Distribution Width 12.8 % (11.5-14.5)
[2018-03-15 21:52] LABS: Prothrombin Time 11.1 Seconds (9.4-12.1)
[2018-03-15 21:58] LABS: Heparin anti-factor XA UFH 0.04 IU/mL (0.30-0.70)
[2018-03-16 04:34] LABS: Basophils % 0.4 %; Eosinophils # 0.1 K/mcL (0.0-0.6); Eosinophils % 2.5 %; Hematocrit 38.1 % (35.3-44.9); Hemoglobin 12.5 g/dL (11.5-15.4); Lymphocytes # 2.4 K/mcL (0.6-4.6); Mean Corpuscular HGB Conc 32.8 g/dL (31.6-35.5); Mean Corpuscular Hemoglobin 30.9 pg (28.0-33.3); Mean Corpuscular Volume 94.1 fL (83.0-100.0); Mean Platelet Volume 9.3 fL (9.4-12.4); Monocytes # 0.3 K/mcL (0.0-1.3); Neutrophils # 2.3 K/mcL (1.6-8.9); Platelet Count 190 K/mcL (140-400); Red Blood Count 4.05 M/mcL (3.82-4.97); Red Cell Distribution Width 12.8 % (11.5-14.5); Segmented Neutrophils % 44.1 %
[2018-03-16 04:40] LABS: Prothrombin Time 11.5 Seconds (9.4-12.1)
[2018-03-16 04:41] LABS: Heparin anti-factor XA UFH 0.71 IU/mL (0.30-0.70)
[2018-03-16 04:56] LABS: Activated Partial Thrombo Time 149.8 Seconds (26.0-36.0)
[2018-03-16 04:59] LABS: Alanine Aminotransferase 18 Units/L (7-52); Albumin 3.7 g/dL (3.5-5.7); Albumin/Globulin Ratio 1.5 (1.1-2.2); Alkaline Phosphatase 79 Units/L (34-104); Aspartate Amino Transferase 18 Units/L (13-39); BUN/Creatinine Ratio 6 (6-26); Bilirubin,Total 0.6 mg/dL (0.3-1.0); Blood Urea Nitrogen 5 mg/dL (6-20); Calcium 8.8 mg/dL (8.6-10.3); Carbon Dioxide 26 mEq/L (23-29); Chloride 111 mEq/L (98-107); Chol/HDL Ratio 3.2 (0-4.9); Cholesterol 155 mg/dL (< 200); Globulin 2.4 g/dL (2.4-3.5); Glucose 99 mg/dL (70-105); HDL Cholesterol 49 mg/dL (40-59); LDL Cholesterol,Calculated 75 mg/dL (0-99); Magnesium 1.9 mg/dL (1.6-2.6); Osmolality,Calculated 289 (280-300); Potassium 3.8 mEq/L (3.5-5.1); Sodium 141 mEq/L (136-145); Total Protein 6.1 g/dL (6.4-8.9); Triglycerides 155 mg/dL (< 150); eGFR For Non-African Americans > 60 (> 60)
[2018-03-16] MEDS ORDERED: Famotidine 20 MG/2 ML VIAL IVP SCH (06:00)
[2018-03-16] MEDS: 0.9 % Sodium Chloride w KCl 20 MEQ/1,000 ML MLS IVC SCH (07:42)
--- NOTE | 2018-03-16 12:24 | Cardiology Consult Note ---
Addendum entered and electronically signed by Srikanth Yen CNP 03/16/18 12:51 : Noted patient reports syncope after taking asa in the past. She was placed on plavix. Discussed with Dr. Jenkins, he will do diagnostic LHC. May need asa desensitization if stent needed. Original Note: <Srikanth Yen - Last Filed: 03/16/18 12:21> Date of Encounter: 03/16/18 Time of Encounter: 10:15 Assessment and Plan (1) Chest pain Current Visit: Yes Status: Acute Persistent chest pain with some typical features. EKG shows junctional rhythm. No acute ST changes. Troponin negative. Stress test 02/2018 negative for ischemia. TTE 02/2018 EF preserved and no significant valvular disease. Chest pain increasing in intensity and frequency. Patient with significant family history in first degree relative and noted conduction disease in young female on EKG suspicious for occlusive CAD. LHC recommended. R/B/A of lHC discussed , patient agrees to proceed. No indication for heparin gtt at this time. Troponin negative. Qualifiers: Chest pain type: chest pain due to myocardial ischemia Ischemic chest pain type: stable angina pectoris Qualified Code(s): I20.8 - Other forms of angina pectoris (2) Bradycardia Current Visit: Yes Status: Acute Noted bradycardia and junctional rhythm. HR as low as 45 BMP seen during waking hours. Noted to have bradycardia following chest pain on my exam. If LHC is normal will consult EP for possible EP study. Avoid AV janet myron. Discussion w patient/family: The assessment and plan as outlined above was discussed with the patient and/or family members who expressed understanding and agreement. All questions were answered. Thank you for involving us in the care of your patient. Please call with any questions. History of Present Illness Consult date: 03/16/18 Requesting physician: Matt Goode Consult reason: Chest pain, presyncope. Chief complaint: Chest pain, dizziness, low heart rates. History of present illness: Ms. Mathews is a 58 year old female with no significant past medical history except possible TIA presents with intermittent chest pain , dizziness, and facial tingling. Reports symptoms started last . She saw her PCP who urged her to go to the hospital and she declined. On Friday chest discomfort increased. Reports mid-sternal chest pain that felt like a lightning bolt going through her chest that was followed by a pressure radiating to her neck for a few seconds. The discomfort is occurring multiple times a day. She also reports ongoing dizziness with movement and after exertion. She notices her HR drops quickly and sometimes into the upper thirties after physical exertion. She recently underwent cardiac work-up for her symptoms. Exercise nuclear stress test was negative for ischemia or infarct. Her HR responded appropriately to exercise. TTE showed preserved EF and no significant valvular disease. Holter monitor showed avg HR 60 bpm. She denies history of CAD. Her brother did have IN in his 50's and she had an aunt who with possible IN at young age. Past Med Surg Social Fam HX - Past Medical History Medical history: asthma, fibromyalgia Additional medical history: diverticulitis; alleriges/sinus problems Psychiatric history: no psych history - Past Surgical History Surgical History: colectomy, hysterectomy Additional surgical history: bladder tuck, rectocele, carpel tunnel, sinus surgery X3 - Social History Smoking Status: Former smoker Smokeless Tobacco Status: No Alcohol use: rarely Drug use: none - Family History Mother History Unknown: Yes Living Status: Hx Family Cardiac Disorders: No Hx Family Neurologic Disorders: Yes (stroke) Father History Unknown: Yes Living Status: Hx Family Respiratory Disorders: Yes (COPD) Daughter Living Status: Still Living Hx Family Respiratory Disorders: Yes (Multiple PEs) Medications and Allergies Azelastine 0.1% Nasal [place] [Astelin] 1 spr NS BID 02/11/18 [History] Cetirizine HCl [Zyrtec] 10 mg PO DAILY PRN 02/11/18 [History] Cranberry Conc/C/Bacill Coag [Azo Cranberry Tablet] 1 tab PO Q12H 02/11/18 [ History] Mometasone Furoate [Nasonex] 1 spr NS BID 02/11/18 [History] 3 Allergy/AdvReac Type Severity Reaction Status Date / Time nitroglycerin Allergy Severe See Verified 02/11/18 14:34 Comments acetaminophen [From Percocet] Allergy Itching Verified 07/31/17 09:57 ciprofloxacin [From Cipro] Allergy See Verified 07/31/17 09:57 Comments codeine Allergy See Verified 07/31/17 09:57 Comments metronidazole [From Flagyl] Allergy See Verified 07/31/17 09:57 Comments ofloxacin [From Floxin] Allergy See Verified 07/31/17 09:57 Comments Oxycodone [From Percocet] Allergy Itching Verified 07/31/17 09:57 tegaserod [From Zelnorm] Allergy See Verified 07/31/17 09:57 Comments aspirin AdvReac Syncope Verified 02/11/18 13:13 All Systems Review: The remainder of the systems were reviewed and are negative Physical Examination Vital Signs, Last 4 Hours Temp Pulse Resp BP Pulse Ox 03/16/18 12:00 98.5 F 53 20 114/60 98 General: Conversant, No Apparent Distress HEENT: Atraumatic, Normocephaly, Mucus Membranes Moist Neck: No JVD, Normal carotid pulses Cardiac: Reg Rate and Rhythm, Normal S1 and S2, No Murmur Lungs: Normal Breath Sounds, No Wheeze, Rales, Rhonchi Neuro: Alert and responsive, No focal deficits noted Abdomen: Soft, Non-Tender Skin: No rashes noted on visualized skin Musculoskeletal: No Chest Wall Tenderness Extremities: No Clubbing, No Cyanosis, No Edema, Normal Pulses Results 03/16/18 04:13 03/16/18 04:13 Lab Results 03/15/18 03/15/18 03/15/18 21:21 21:21 21:21 WBC 5.8 Hgb 13.0 Hct 38.9 Plt Count 248 INR 1.0 APTT Sodium Potassium Chloride Carbon Dioxide BUN Creatinine Glucose Calcium Magnesium Total Bilirubin AST ALT Alkaline Phosphatase Troponin I < 0.03 03/16/18 03/16/18 03/16/18 04:13 04:13 04:13 WBC 5.1 Hgb 12.5 Hct 38.1 Plt Count 190 INR APTT Sodium 141 Potassium 3.8 Chloride 111 H Carbon Dioxide 26 BUN 5 L Creatinine 0.83 Glucose 99 Calcium 8.8 Magnesium 1.9 Total Bilirubin 0.6 AST 18 ALT 18 Alkaline Phosphatase 79 Troponin I < 0.03 03/16/18 03/16/18 04:13 09:18 WBC Hgb Hct Plt Count INR 1.0 APTT 149.8 H* D Sodium Potassium Chloride Carbon Dioxide BUN Creatinine Glucose Calcium Magnesium Total Bilirubin AST ALT Alkaline Phosphatase Troponin I < 0.03 - Imaging and Cardiology Stress Test: report reviewed Echo: report reviewed - EKG Interpretation EKG results cardiology: personally reviewed Consult Discharge Plan - Plan Referrals: Eagle Mcknight MD [Primary Care Provider] - <Tamra Harper - Last Filed: 03/16/18 19:08> Date of Encounter: 03/16/18 - Attending Attestation Patient was seen and evaluated independently by me. Findings, assessment and plan were discussed at length with patient, questions answered. Agree with nurse practitioner's documentation. Addition as follows, 58yo CF w/o sig medical ho P/w symptom of TIA (slurred speech), neg CT head. ECG ? afib with slow V response. C/o atypical and typical cp associated with symptomatic alternating bradycardia and tachycardia 3 months worsening 1 month. Recent workup recent 02/2018: 48 Holter PACs, TTE wnl, exercise nuclear stress test no ischemia, LHC done for worsening cp and concern for AVB block due to intermittent ischemia/spasm today negative for obstructive epicardial CAD. Long interview with patient, + scalp tick bite 3-4 months ago, presyncope episodes are not typical of neurocardiogenic feature. Negative carotid massage test. Review of ECGs, Holter report, stress ECG, ECG of this admission and Tele today: paroxysmal ectopic atrial rhythm, paroxysmal atrial fibrillation, episodes of slow V response, question of high grade AVB with junctional escape A: - paroxysmal atrial fibrillation, paroxysmal ectopic atrial rhythm and junctional rhythm - variable AVB - TIA vs transient hypoxic encephalopathy vs complex migraine - r/o lyme disease P: - lyme titer (ordered) - c/w heparin drip - will consult EP for EP study vs event monitor - Tamra Harper MD, PhD Assessment and Plan Discussion w patient/family: The assessment and plan as outlined above was discussed with the patient and/or family members who expressed understanding and agreement. All questions were answered. Thank you for involving us in the care of your patient. Please call with any questions. History of Present Illness History of present illness: Ms. Mathews is a 58 year old female All Systems Review: The remainder of the systems were reviewed and are negative Physical Examination Vital Signs, Last 4 Hours Temp Pulse Resp BP Pulse Ox 03/16/18 16:30 97.4 F L 52 20 126/69 99 03/16/18 15:30 53 18 133/59 100 Results 03/16/18 04:13 03/16/18 04:13 Lab Results 03/15/18 03/15/18 03/15/18 21:21 21:21 21:21 WBC 5.8 Hgb 13.0 Hct 38.9 Plt Count 248 INR 1.0 APTT Sodium Potassium Chloride Carbon Dioxide BUN Creatinine Glucose Calcium Magnesium Total Bilirubin AST ALT Alkaline Phosphatase Troponin I < 0.03 03/16/18 03/16/18 03/16/18 04:13 04:13 04:13 WBC 5.1 Hgb 12.5 Hct 38.1 Plt Count 190 INR APTT Sodium 141 Potassium 3.8 Chloride 111 H Carbon Dioxide 26 BUN 5 L Creatinine 0.83 Glucose 99 Calcium 8.8 Magnesium 1.9 Total Bilirubin 0.6 AST 18 ALT 18 Alkaline Phosphatase 79 Troponin I < 0.03 03/16/18 03/16/18 04:13 09:18 WBC Hgb Hct Plt Count INR 1.0 APTT 149.8 H* D Sodium Potassium Chloride Carbon Dioxide BUN Creatinine Glucose Calcium Magnesium Total Bilirubin AST ALT Alkaline Phosphatase Troponin I < 0.03
[2018-03-16] MEDS: Ondansetron 4 MG/2 ML VIAL IVP PRN (13:17)
[2018-03-16] MEDS ORDERED: Heparin 1,000 UNITS/500 mL 500 ML ONE (13:50)
[2018-03-16] MEDS ORDERED: *HR* Heparin 10,000 UNIT/10 ML VIAL ONE (13:50)
[2018-03-16] MEDS ORDERED: ISOVUE-370 200 ML INFUS..BTL IV ONE (13:50)
[2018-03-16] MEDS ORDERED: 0.9 % Sodium Chloride 1,000 ML ONE (13:51)
[2018-03-16] MEDS ORDERED: Nitroglycerin 1,000 MCG/10 ML VIAL IV ONE (13:51)
--- NOTE | 2018-03-16 14:28 | Internal Med Progress Note ---
Hospitalist Progress Note - Encounter Date of Encounter: 03/16/18 Time of Encounter: 09:30 - Subjective Interval History: Continues to have intermittent slurred speech and dizziness and near syncope; improved chest pain; no shortness of breath, palpitations, leg swelling; - Exam Vitals: Temp Pulse Resp BP Pulse Ox 98.5 F 53 20 114/60 98 03/16/18 12:00 03/16/18 12:00 03/16/18 12:00 03/16/18 12:00 03/16/18 12:00 Exam: General: Well-developed female sitting up in chair, in no acute distress Skin: Warm and supple HEENT: Moist mucous membranes. Chest: Normal thoracic expansion. Normal breath sounds. Clear to auscultation. Heart: Normal S1 & S2; rhythmic. No rubs or murmurs. Bradycardia+ Abdomen: Non-distended, soft and nontender Extremities: No clubbing, cyanosis or edema. No calf tenderness. Normal distal pulses. Neurological: Awake, alert and oriented to person, place and time. No focal deficits. Psych: Affect appropriate. - Assessment and Plan (1) Chest pain Current Visit: Yes Status: Acute Assessment and Plan: Atypical chest pain with TIA-like symptoms and near syncope, worsening; EKG was concerning for occlusive CAD, Cardiology consulted, plan for left heart catheterization; continue IV Heparin drip, Plavix; patient is allergic to ASA; if she receives a stent, plan for ASA desensitization; serial Troponins negative for ACS; continue Telemetry; consider MRI brain if LHC is negative due to her TIA-like symptoms; (2) Bradycardia Current Visit: Yes Status: Chronic Assessment and Plan: HR noted to be in 50s while awake; per previous notes, she had near syncopal episodes associated with bradycardia in 30s; Cardiology on board; continue Telemetry; (3) DVT prophylaxis Current Visit: Yes Status: Acute - Time Spent with Patient Total time spent is greater than 50% in coordination of care (as documented) at patient's floor/unit and/or counseling patient: Plan of Care Discussed with: patient Internal Medicine: Result - Labs CBC & Chem 7: 03/16/18 04:13 03/16/18 04:13 Labs: Short CBC 03/15/18 03/16/18 Range/Units 21:21 04:13 WBC 5.8 5.1 (4.3-11.1) K/mcL Hgb 13.0 12.5 (11.5-15.4) g/dL Hct 38.9 38.1 (35.3-44.9) % Plt Count 248 190 (140-400) K/mcL Neutrophils # 2.3 (1.6-8.9) K/mcL BMP 03/16/18 04:13 Sodium 141 Potassium 3.8 Chloride 111 H Carbon Dioxide 26 BUN 5 L Creatinine 0.83 Glucose 99 Calcium 8.8 Cardiac Enzymes 03/15/18 03/16/18 03/16/18 Range/Units 21:21 04:13 09: Troponin I < 0.03 < 0.03 < 0.03 (< 0.04) ng/mL Liver Function 03/16/18 Range/Units 04:13 Total Bilirubin 0.6 (0.3-1.0) mg/dL AST 18 (13-39) Units/L ALT 18 (7-52) Units/L Alkaline Phosphatase 79 (34-104) Units/L Albumin 3.7 (3.5-5.7) g/dL - ABG Interpretation ABG results: PT/INR, D-dimer PT 11.5 Seconds (9.4-12.1) 03/16/18 04:13 D-Dimer 267 ng/mLFEU (0-500) 03/15/18 17:05 Consult Discharge Plan - Plan Referrals: Eagle Mcknight MD [Primary Care Provider] - (1) Chest pain Qualifiers: Chest pain type: unspecified Qualified Code(s): R07.9 - Chest pain, unspecified
[2018-03-16] MEDS ORDERED: *HR* FentaNYL (PF) 100 MCG/2 ML VIAL ONE (14:38)
[2018-03-16] MEDS ORDERED: *HR* Midazolam HCl 2 MG/2 ML VIAL ONE (14:38)
--- NOTE | 2018-03-16 14:42 | Pre-Sedation Evaluation ---
Pre-sedation evaluation - Pre-sedation checklist Date of procedure: 03/16/18 Procedure: [facility] Recent Vitals: Last Vital Signs Temp 98.5 F 03/16/18 12:00 Pulse 53 03/16/18 12:00 Resp 20 03/16/18 12:00 BP 114/60 03/16/18 12:00 Pulse Ox 98 03/16/18 12:00 H&P (including ROS) documented in medical record: Yes Previous reaction to sedatives/anesthetics: Yes; explain in comment Dietary Status: NPO after Midnight Dentition: full dentition ASA Classification *see protocol: CLASS II-Mild systemic disease Cardiac Registry (Cardio Only) - Functional Capacity Functional Capacity: >=4 METS with symptoms - Clincal Frailty Scale Clinical Frailty Scale: Vulnerable
--- NOTE | 2018-03-16 15:18 | Invasive Diagnostic Lab Proc ---
Name: Rajani Mathews Date of Study: 03/16/2018 Date: 1960 Ht: 65.0in Medical Record#: [id number] Age: 58 Wt: 160.94lb Gender: Female BSA: 1.8 Order #: [id number] BMI: 26.81 Physicians Procedure Physician: Rihcard Jenkins MD Referring MD: Referring MD: Staff Name Position Time In BarbaraKinsey RN Monitor 02:30 PM Derek Santana RN Regulatory And Compliance Technician 02:30 PM Trang Rodríguez RT (R) Scrub 02:30 PM Procedures Performed Procedure L HRT ARTERY/VENTRICLE ANGIO Pre-Procedure Checklist Informed consent is complete signed and on chart. H&P is on chart. ID band is on and ID verified with patient. Patient NPO for procedure The procedure was described for the patient and questions were answered. ECG is on chart. Plan of Care Patient will tolerate the procedure without complications. Adequate level of comfort will be maintained. Hemodynamics will remain stable Patient will recover from procedure without complications. Respiratory function will be maintained. Cardiac rhythm will remain stable. Patient temperature will be maintained. Patient and/or family have verbalized understanding of the procedure. Patient Education Chief Complaint/Reason for Test: Cardiac Cath Developmental Category: Adult (18-64 years) Developmentally Appropriate for Age: Yes Learning Barriers: None Education Needs: Procedure Education Method: Verbal Information Taught: Cardiac Cath Educational Evaluation: Able to repeat information Intravenous Access Time IV Size Location DC'd Fluid/Drip Rate Units RN 20g 1 1/4" Patent On Arrival Rt Arm Allergies asa,zelnorm,percocet,flagyl,floxin,sulfa,cipro, CO asa,zelnorm,percocet,flagyl,floxin,sulfa,cipro, CO asa,zelnorm,percocet,flagyl,floxin,sulfa,cipro, CO asa,zelnorm,percocet,flagyl,floxin,sulfa,cipro, CO asa,zelnorm,percocet,flagyl,floxin,sulfa,cipro, CO asa,zelnorm,percocet,flagyl,floxin,sulfa,cipro, CO asa,zelnorm,percocet,flagyl,floxin,sulfa,cipro, CO asa,zelnorm,percocet,flagyl,floxin,sulfa,cipro, CO CHICKEN,TURKEY,ASA,ZELNORM,FLAGYL,PERCOCET,ASA,COB asa,zelnorm,percocet,flagyl,floxin,sulfa,cipro, CO asa,zelnorm,percocet,flagyl,floxin,sulfa,cipro, CO asa,zelnorm,percocet,flagyl,floxin,sulfa,cipro, CO asa,zelnorm,percocet,flagyl,floxin,sulfa,cipro, CO asa,zelnorm,percocet,flagyl,floxin,sulfa,cipro, CO asa,zelnorm,percocet,flagyl,floxin,sulfa,cipro, CO asa,zelnorm,percocet,flagyl,floxin,sulfa,cipro, CO asa,zelnorm,percocet,flagyl,floxin,sulfa,cipro, CO asa,zelnorm,percocet,flagyl,floxin,sulfa,cipro, CO asa,zelnorm,percocet,flagyl,floxin,sulfa,cipro, CO asa,zelnorm,percocet,flagyl,floxin,sulfa,cipro, CO asa,zelnorm,percocet,flagyl,floxin,sulfa,cipro, CO asa,zelnorm,percocet,flagyl,floxin,sulfa,cipro, CO asa,zelnorm,percocet,flagyl,floxin,sulfa,cipro, CO asa,zelnorm,percocet,flagyl,floxin,sulfa,cipro, CO asa,zelnorm,percocet,flagyl,floxin,sulfa,cipro, CO asa,zelnorm,percocet,flagyl,floxin,sulfa,cipro, CO CHICKEN,TURKEY,ASA,ZELNORM,FLAGYL,PERCOCET,ASA,COB asa,zelnorm,percocet,flagyl,floxin,sulfa,cipro, CO asa,zelnorm,percocet,flagyl,floxin,sulfa,cipro, CO asa,zelnorm,percocet,flagyl,floxin,sulfa,cipro, CO asa,zelnorm,percocet,flagyl,floxin,sulfa,cipro, CO asa,zelnorm,percocet,flagyl,floxin,sulfa,cipro, CO asa,zelnorm,percocet,flagyl,floxin,sulfa,cipro, CO asa,zelnorm,percocet,flagyl,floxin,sulfa,cipro, CO asa,zelnorm,percocet,flagyl,floxin,sulfa,cipro, CO asa,zelnorm,percocet,flagyl,floxin,sulfa,cipro, CO asa,zelnorm,percocet,flagyl,floxin,sulfa,cipro, CO asa,zelnorm,percocet,flagyl,floxin,sulfa,cipro, CO asa,zelnorm,percocet,flagyl,floxin,sulfa,cipro, CO asa,zelnorm,percocet,flagyl,floxin,sulfa,cipro, CO asa,zelnorm,percocet,flagyl,floxin,sulfa,cipro, CO asa,zelnorm,percocet,flagyl,floxin,sulfa,cipro, CO CHICKEN,TURKEY,ASA,ZELNORM,FLAGYL,PERCOCET,ASA,COB asa,zelnorm,percocet,flagyl,floxin,sulfa,cipro, CO asa,zelnorm,percocet,flagyl,floxin,sulfa,cipro, CO asa,zelnorm,percocet,flagyl,floxin,sulfa,cipro, CO asa,zelnorm,percocet,flagyl,floxin,sulfa,cipro, CO asa,zelnorm,percocet,flagyl,floxin,sulfa,cipro, CO asa,zelnorm,percocet,flagyl,floxin,sulfa,cipro, CO asa,zelnorm,percocet,flagyl,floxin,sulfa,cipro, CO asa,zelnorm,percocet,flagyl,floxin,sulfa,cipro, CO asa,zelnorm,percocet,flagyl,floxin,sulfa,cipro, CO asa,zelnorm,percocet,flagyl,floxin,sulfa,cipro, CO asa,zelnorm,percocet,flagyl,floxin,sulfa,cipro, CO asa,zelnorm,percocet,flagyl,floxin,sulfa,cipro, CO asa,zelnorm,percocet,flagyl,floxin,sulfa,cipro, CO asa,zelnorm,percocet,flagyl,floxin,sulfa,cipro, CO CHICKEN,TURKEY,ASA,ZELNORM,FLAGYL,PERCOCET,ASA,COB asa,zelnorm,percocet,flagyl,floxin,sulfa,cipro, CO asa,zelnorm,percocet,flagyl,floxin,sulfa,cipro, CO asa,zelnorm,percocet,flagyl,floxin,sulfa,cipro, CO asa,zelnorm,percocet,flagyl,floxin,sulfa,cipro, CO asa,zelnorm,percocet,flagyl,floxin,sulfa,cipro, CO asa,zelnorm,percocet,flagyl,floxin,sulfa,cipro, CO asa,zelnorm,percocet,flagyl,floxin,sulfa,cipro, CO asa,zelnorm,percocet,flagyl,floxin,sulfa,cipro, CO asa,zelnorm,percocet,flagyl,floxin,sulfa,cipro, CO asa,zelnorm,percocet,flagyl,floxin,sulfa,cipro, CO asa,zelnorm,percocet,flagyl,floxin,sulfa,cipro, CO asa,zelnorm,percocet,flagyl,floxin,sulfa,cipro, CO asa,zelnorm,percocet,flagyl,floxin,sulfa,cipro, CO asa,zelnorm,percocet,flagyl,floxin,sulfa,cipro, CO asa,zelnorm,percocet,flagyl,floxin,sulfa,cipro, CO CHICKEN,TURKEY,ASA,ZELNORM,FLAGYL,PERCOCET,ASA,COB asa,zelnorm,percocet,flagyl,floxin,sulfa,cipro, CO asa,zelnorm,percocet,flagyl,floxin,sulfa,cipro, CO asa,zelnorm,percocet,flagyl,floxin,sulfa,cipro, CO asa,zelnorm,percocet,flagyl,floxin,sulfa,cipro, CO asa,zelnorm,percocet,flagyl,floxin,sulfa,cipro, CO asa,zelnorm,percocet,flagyl,floxin,sulfa,cipro, CO asa,zelnorm,percocet,flagyl,floxin,sulfa,cipro, CO asa,zelnorm,percocet,flagyl,floxin,sulfa,cipro, CO asa,zelnorm,percocet,flagyl,floxin,sulfa,cipro, CO asa,zelnorm,percocet,flagyl,floxin,sulfa,cipro, CO asa,zelnorm,percocet,flagyl,floxin,sulfa,cipro, CO asa,zelnorm,percocet,flagyl,floxin,sulfa,cipro, CO asa,zelnorm,percocet,flagyl,floxin,sulfa,cipro, CO asa,zelnorm,percocet,flagyl,floxin,sulfa,cipro, CO asa,zelnorm,percocet,flagyl,floxin,sulfa,cipro, CO asa,zelnorm,percocet,flagyl,floxin,sulfa,cipro, CO asa,zelnorm,percocet,flagyl,floxin,sulfa,cipro, CO asa,zelnorm,percocet,flagyl,floxin,sulfa,cipro, CO asa,zelnorm,percocet,flagyl,floxin,sulfa,cipro, CO asa,zelnorm,percocet,flagyl,floxin,sulfa,cipro, CO asa,zelnorm,percocet,flagyl,floxin,sulfa,cipro, CO CHICKEN,TURKEY,ASA,ZELNORM,FLAGYL,PERCOCET,ASA,COB asa,zelnorm,percocet,flagyl,floxin,sulfa,cipro, CO asa,zelnorm,percocet,flagyl,floxin,sulfa,cipro, CO asa,zelnorm,percocet,flagyl,floxin,sulfa,cipro, CO asa,zelnorm,percocet,flagyl,floxin,sulfa,cipro, CO asa,zelnorm,percocet,flagyl,floxin,sulfa,cipro, CO asa,zelnorm,percocet,flagyl,floxin,sulfa,cipro, CO asa,zelnorm,percocet,flagyl,floxin,sulfa,cipro, CO asa,zelnorm,percocet,flagyl,floxin,sulfa,cipro, CO asa,zelnorm,percocet,flagyl,floxin,sulfa,cipro, CO asa,zelnorm,percocet,flagyl,floxin,sulfa,cipro, CO asa,zelnorm,percocet,flagyl,floxin,sulfa,cipro, CO asa,zelnorm,percocet,flagyl,floxin,sulfa,cipro, CO CHICKEN,TURKEY,ASA,ZELNORM,FLAGYL,PERCOCET,ASA,COB asa,zelnorm,percocet,flagyl,floxin,sulfa,cipro, CO asa,zelnorm,percocet,flagyl,floxin,sulfa,cipro, CO asa,zelnorm,percocet,flagyl,floxin,sulfa,cipro, CO asa,zelnorm,percocet,flagyl,floxin,sulfa,cipro, CO asa,zelnorm,percocet,flagyl,floxin,sulfa,cipro, CO asa,zelnorm,percocet,flagyl,floxin,sulfa,cipro, CO asa,zelnorm,percocet,flagyl,floxin,sulfa,cipro, CO asa,zelnorm,percocet,flagyl,floxin,sulfa,cipro, CO asa,zelnorm,percocet,flagyl,floxin,sulfa,cipro, CO asa,zelnorm,percocet,flagyl,floxin,sulfa,cipro, CO asa,zelnorm,percocet,flagyl,floxin,sulfa,cipro, CO asa,zelnorm,percocet,flagyl,floxin,sulfa,cipro, CO asa,zelnorm,percocet,flagyl,floxin,sulfa,cipro, CO CHICKEN,TURKEY,ASA,ZELNORM,FLAGYL,PERCOCET,ASA,COB asa,zelnorm,percocet,flagyl,floxin,sulfa,cipro, CO asa,zelnorm,percocet,flagyl,floxin,sulfa,cipro, CO asa,zelnorm,percocet,flagyl,floxin,sulfa,cipro, CO asa,zelnorm,percocet,flagyl,floxin,sulfa,cipro, CO asa,zelnorm,percocet,flagyl,floxin,sulfa,cipro, CO asa,zelnorm,percocet,flagyl,floxin,sulfa,cipro, CO asa,zelnorm,percocet,flagyl,floxin,sulfa,cipro, CO asa,zelnorm,percocet,flagyl,floxin,sulfa,cipro, CO asa,zelnorm,percocet,flagyl,floxin,sulfa,cipro, CO asa,zelnorm,percocet,flagyl,floxin,sulfa,cipro, CO asa,zelnorm,percocet,flagyl,floxin,sulfa,cipro, CO asa,zelnorm,percocet,flagyl,floxin,sulfa,cipro, CO asa,zelnorm,percocet,flagyl,floxin,sulfa,cipro, CO CHICKEN,TURKEY,ASA,ZELNORM,FLAGYL,PERCOCET,ASA,COB asa,zelnorm,percocet,flagyl,floxin,sulfa,cipro, CO asa,zelnorm,percocet,flagyl,floxin,sulfa,cipro, CO asa,zelnorm,percocet,flagyl,floxin,sulfa,cipro, CO asa,zelnorm,percocet,flagyl,floxin,sulfa,cipro, CO asa,zelnorm,percocet,flagyl,floxin,sulfa,cipro, CO asa,zelnorm,percocet,flagyl,floxin,sulfa,cipro, CO asa,zelnorm,percocet,flagyl,floxin,sulfa,cipro, CO asa,zelnorm,percocet,flagyl,floxin,sulfa,cipro, CO asa,zelnorm,percocet,flagyl,floxin,sulfa,cipro, CO asa,zelnorm,percocet,flagyl,floxin,sulfa,cipro, CO asa,zelnorm,percocet,flagyl,floxin,sulfa,cipro, CO nitroglycerin asa,zelnorm,percocet,flagyl,floxin,sulfa,cipro, CO asa,zelnorm,percocet,flagyl,floxin,sulfa,cipro, CO asa,zelnorm,percocet,flagyl,floxin,sulfa,cipro, CO asa,zelnorm,percocet,flagyl,floxin,sulfa,cipro, CO asa,zelnorm,percocet,flagyl,floxin,sulfa,cipro, CO asa,zelnorm,percocet,flagyl,floxin,sulfa,cipro, CO asa,zelnorm,percocet,flagyl,floxin,sulfa,cipro, CO asa,zelnorm,percocet,flagyl,floxin,sulfa,cipro, CO asa,zelnorm,percocet,flagyl,floxin,sulfa,cipro, CO asa,zelnorm,percocet,flagyl,floxin,sulfa,cipro, CO CHICKEN,TURKEY,ASA,ZELNORM,FLAGYL,PERCOCET,ASA,COB asa,zelnorm,percocet,flagyl,floxin,sulfa,cipro, CO asa,zelnorm,percocet,flagyl,floxin,sulfa,cipro, CO asa,zelnorm,percocet,flagyl,floxin,sulfa,cipro, CO asa,zelnorm,percocet,flagyl,floxin,sulfa,cipro, CO asa,zelnorm,percocet,flagyl,floxin,sulfa,cipro, CO asa,zelnorm,percocet,flagyl,floxin,sulfa,cipro, CO asa,zelnorm,percocet,flagyl,floxin,sulfa,cipro, CO asa,zelnorm,percocet,flagyl,floxin,sulfa,cipro, CO asa,zelnorm,percocet,flagyl,floxin,sulfa,cipro, CO asa,zelnorm,percocet,flagyl,floxin,sulfa,cipro, CO CHICKEN,TURKEY,ASA,ZELNORM,FLAGYL,PERCOCET,ASA,COB asa,zelnorm,percocet,flagyl,floxin,sulfa,cipro, CO asa,zelnorm,percocet,flagyl,floxin,sulfa,cipro, CO asa,zelnorm,percocet,flagyl,floxin,sulfa,cipro, CO asa,zelnorm,percocet,flagyl,floxin,sulfa,cipro, CO asa,zelnorm,percocet,flagyl,floxin,sulfa,cipro, CO asa,zelnorm,percocet,flagyl,floxin,sulfa,cipro, CO asa,zelnorm,percocet,flagyl,floxin,sulfa,cipro, CO asa,zelnorm,percocet,flagyl,floxin,sulfa,cipro, CO asa,zelnorm,percocet,flagyl,floxin,sulfa,cipro, CO asa,zelnorm,percocet,flagyl,floxin,sulfa,cipro, CO asa,zelnorm,percocet,flagyl,floxin,sulfa,cipro, CO asa,zelnorm,percocet,flagyl,floxin,sulfa,cipro, CO asa,zelnorm,percocet,flagyl,floxin,sulfa,cipro, CO asa,zelnorm,percocet,flagyl,floxin,sulfa,cipro, CO asa,zelnorm,percocet,flagyl,floxin,sulfa,cipro, CO asa,zelnorm,percocet,flagyl,floxin,sulfa,cipro, CO asa,zelnorm,percocet,flagyl,floxin,sulfa,cipro, CO asa,zelnorm,percocet,flagyl,floxin,sulfa,cipro, CO asa,zelnorm,percocet,flagyl,floxin,sulfa,cipro, CO asa,zelnorm,percocet,flagyl,floxin,sulfa,cipro, CO asa,zelnorm,percocet,flagyl,floxin,sulfa,cipro, CO asa,zelnorm,percocet,flagyl,floxin,sulfa,cipro, CO asa,zelnorm,percocet,flagyl,floxin,sulfa,cipro, CO asa,zelnorm,percocet,flagyl,floxin,sulfa,cipro, CO asa,zelnorm,percocet,flagyl,floxin,sulfa,cipro, CO asa,zelnorm,percocet,flagyl,floxin,sulfa,cipro, CO asa,zelnorm,percocet,flagyl,floxin,sulfa,cipro, CO asa,zelnorm,percocet,flagyl,floxin,sulfa,cipro, CO asa,zelnorm,percocet,flagyl,floxin,sulfa,cipro, CO asa,zelnorm,percocet,flagyl,floxin,sulfa,cipro, CO asa,zelnorm,percocet,flagyl,floxin,sulfa,cipro, CO asa,zelnorm,percocet,flagyl,floxin,sulfa,cipro, CO asa,zelnorm,percocet,flagyl,floxin,sulfa,cipro, CO asa,zelnorm,percocet,flagyl,floxin,sulfa,cipro, CO asa,zelnorm,percocet,flagyl,floxin,sulfa,cipro, CO asa,zelnorm,percocet,flagyl,floxin,sulfa,cipro, CO asa,zelnorm,percocet,flagyl,floxin,sulfa,cipro, CO asa,zelnorm,percocet,flagyl,floxin,sulfa,cipro, CO CHICKEN,TURKEY,ASA,ZELNORM,FLAGYL,PERCOCET,ASA,COB asa,zelnorm,percocet,flagyl,floxin,sulfa,cipro, CO asa,zelnorm,percocet,flagyl,floxin,sulfa,cipro, CO asa,zelnorm,percocet,flagyl,floxin,sulfa,cipro, CO asa,zelnorm,percocet,flagyl,floxin,sulfa,cipro, CO asa,zelnorm,percocet,flagyl,floxin,sulfa,cipro, CO asa,zelnorm,percocet,flagyl,floxin,sulfa,cipro, CO asa,zelnorm,percocet,flagyl,floxin,sulfa,cipro, CO asa,zelnorm,percocet,flagyl,floxin,sulfa,cipro, CO asa,zelnorm,percocet,flagyl,floxin,sulfa,cipro, CO asa,zelnorm,percocet,flagyl,floxin,sulfa,cipro, CO asa,zelnorm,percocet,flagyl,floxin,sulfa,cipro, CO asa,zelnorm,percocet,flagyl,floxin,sulfa,cipro, CO asa,zelnorm,percocet,flagyl,floxin,sulfa,cipro, CO asa,zelnorm,percocet,flagyl,floxin,sulfa,cipro, CO asa,zelnorm,percocet,flagyl,floxin,sulfa,cipro, CO asa,zelnorm,percocet,flagyl,floxin,sulfa,cipro, CO asa,zelnorm,percocet,flagyl,floxin,sulfa,cipro, CO asa,zelnorm,percocet,flagyl,floxin,sulfa,cipro, CO asa,zelnorm,percocet,flagyl,floxin,sulfa,cipro, CO asa,zelnorm,percocet,flagyl,floxin,sulfa,cipro, CO asa,zelnorm,percocet,flagyl,floxin,sulfa,cipro, CO CHICKEN,TURKEY,ASA,ZELNORM,FLAGYL,PERCOCET,ASA,COB asa,zelnorm,percocet,flagyl,floxin,sulfa,cipro, CO asa,zelnorm,percocet,flagyl,floxin,sulfa,cipro, CO asa,zelnorm,percocet,flagyl,floxin,sulfa,cipro, CO asa,zelnorm,percocet,flagyl,floxin,sulfa,cipro, CO asa,zelnorm,percocet,flagyl,floxin,sulfa,cipro, CO asa,zelnorm,percocet,flagyl,floxin,sulfa,cipro, CO asa,zelnorm,percocet,flagyl,floxin,sulfa,cipro, CO CHICKEN,TURKEY,ASA,ZELNORM,FLAGYL,PERCOCET,ASA,COB asa,zelnorm,percocet,flagyl,floxin,sulfa,cipro, CO asa,zelnorm,percocet,flagyl,floxin,sulfa,cipro, CO asa,zelnorm,percocet,flagyl,floxin,sulfa,cipro, CO asa,zelnorm,percocet,flagyl,floxin,sulfa,cipro, CO asa,zelnorm,percocet,flagyl,floxin,sulfa,cipro, CO asa,zelnorm,percocet,flagyl,floxin,sulfa,cipro, CO asa,zelnorm,percocet,flagyl,floxin,sulfa,cipro, CO asa,zelnorm,percocet,flagyl,floxin,sulfa,cipro, CO asa,zelnorm,percocet,flagyl,floxin,sulfa,cipro, CO asa,zelnorm,percocet,flagyl,floxin,sulfa,cipro, CO CHICKEN,TURKEY,ASA,ZELNORM,FLAGYL,PERCOCET,ASA,COB asa,zelnorm,percocet,flagyl,floxin,sulfa,cipro, CO asa,zelnorm,percocet,flagyl,floxin,sulfa,cipro, CO asa,zelnorm,percocet,flagyl,floxin,sulfa,cipro, CO asa,zelnorm,percocet,flagyl,floxin,sulfa,cipro, CO asa,zelnorm,percocet,flagyl,floxin,sulfa,cipro, CO Yellow Dye (Tartrazine, Fd C No. 5) SULFA (sulfonamide) codeine Oxycodone asa,zelnorm,percocet,flagyl,floxin,sulfa,cipro, CO asa,zelnorm,percocet,flagyl,floxin,sulfa,cipro, CO asa,zelnorm,percocet,flagyl,floxin,sulfa,cipro, CO asa,zelnorm,percocet,flagyl,floxin,sulfa,cipro, CO asa,zelnorm,percocet,flagyl,floxin,sulfa,cipro, CO asa,zelnorm,percocet,flagyl,floxin,sulfa,cipro, CO asa,zelnorm,percocet,flagyl,floxin,sulfa,cipro, CO asa,zelnorm,percocet,flagyl,floxin,sulfa,cipro, CO asa,zelnorm,percocet,flagyl,floxin,sulfa,cipro, CO asa,zelnorm,percocet,flagyl,floxin,sulfa,cipro, CO asa,zelnorm,percocet,flagyl,floxin,sulfa,cipro, CO CHICKEN,TURKEY,ASA,ZELNORM,FLAGYL,PERCOCET,ASA,COB asa,zelnorm,percocet,flagyl,floxin,sulfa,cipro, CO asa,zelnorm,percocet,flagyl,floxin,sulfa,cipro, CO asa,zelnorm,percocet,flagyl,floxin,sulfa,cipro, CO asa,zelnorm,percocet,flagyl,floxin,sulfa,cipro, CO asa,zelnorm,percocet,flagyl,floxin,sulfa,cipro, CO asa,zelnorm,percocet,flagyl,floxin,sulfa,cipro, CO asa,zelnorm,percocet,flagyl,floxin,sulfa,cipro, CO asa,zelnorm,percocet,flagyl,floxin,sulfa,cipro, CO asa,zelnorm,percocet,flagyl,floxin,sulfa,cipro, CO asa,zelnorm,percocet,flagyl,floxin,sulfa,cipro, CO asa,zelnorm,percocet,flagyl,floxin,sulfa,cipro, CO asa,zelnorm,percocet,flagyl,floxin,sulfa,cipro, CO asa,zelnorm,percocet,flagyl,floxin,sulfa,cipro, CO asa,zelnorm,percocet,flagyl,floxin,sulfa,cipro, CO asa,zelnorm,percocet,flagyl,floxin,sulfa,cipro, CO asa,zelnorm,percocet,flagyl,floxin,sulfa,cipro, CO CHICKEN,TURKEY,ASA,ZELNORM,FLAGYL,PERCOCET,ASA,COB asa,zelnorm,percocet,flagyl,floxin,sulfa,cipro, CO asa,zelnorm,percocet,flagyl,floxin,sulfa,cipro, CO asa,zelnorm,percocet,flagyl,floxin,sulfa,cipro, CO asa,zelnorm,percocet,flagyl,floxin,sulfa,cipro, CO asa,zelnorm,percocet,flagyl,floxin,sulfa,cipro, CO asa,zelnorm,percocet,flagyl,floxin,sulfa,cipro, CO asa,zelnorm,percocet,flagyl,floxin,sulfa,cipro, CO asa,zelnorm,percocet,flagyl,floxin,sulfa,cipro, CO asa,zelnorm,percocet,flagyl,floxin,sulfa,cipro, CO asa,zelnorm,percocet,flagyl,floxin,sulfa,cipro, CO asa,zelnorm,percocet,flagyl,floxin,sulfa,cipro, CO asa,zelnorm,percocet,flagyl,floxin,sulfa,cipro, CO asa,zelnorm,percocet,flagyl,floxin,sulfa,cipro, CO asa,zelnorm,percocet,flagyl,floxin,sulfa,cipro, CO asa,zelnorm,percocet,flagyl,floxin,sulfa,cipro, CO asa,zelnorm,percocet,flagyl,floxin,sulfa,cipro, CO asa,zelnorm,percocet,flagyl,floxin,sulfa,cipro, CO CHICKEN,TURKEY,ASA,ZELNORM,FLAGYL,PERCOCET,ASA,COB asa,zelnorm,percocet,flagyl,floxin,sulfa,cipro, CO asa,zelnorm,percocet,flagyl,floxin,sulfa,cipro, CO asa,zelnorm,percocet,flagyl,floxin,sulfa,cipro, CO asa,zelnorm,percocet,flagyl,floxin,sulfa,cipro, CO asa,zelnorm,percocet,flagyl,floxin,sulfa,cipro, CO asa,zelnorm,percocet,flagyl,floxin,sulfa,cipro, CO asa,zelnorm,percocet,flagyl,floxin,sulfa,cipro, CO asa,zelnorm,percocet,flagyl,floxin,sulfa,cipro, CO asa,zelnorm,percocet,flagyl,floxin,sulfa,cipro, CO asa,zelnorm,percocet,flagyl,floxin,sulfa,cipro, CO asa,zelnorm,percocet,flagyl,floxin,sulfa,cipro, CO asa,zelnorm,percocet,flagyl,floxin,sulfa,cipro, CO asa,zelnorm,percocet,flagyl,floxin,sulfa,cipro, CO asa,zelnorm,percocet,flagyl,floxin,sulfa,cipro, CO CHICKEN,TURKEY,ASA,ZELNORM,FLAGYL,PERCOCET,ASA,COB asa,zelnorm,percocet,flagyl,floxin,sulfa,cipro, CO asa,zelnorm,percocet,flagyl,floxin,sulfa,cipro, CO asa,zelnorm,percocet,flagyl,floxin,sulfa,cipro, CO asa,zelnorm,percocet,flagyl,floxin,sulfa,cipro, CO asa,zelnorm,percocet,flagyl,floxin,sulfa,cipro, CO asa,zelnorm,percocet,flagyl,floxin,sulfa,cipro, CO asa,zelnorm,percocet,flagyl,floxin,sulfa,cipro, CO asa,zelnorm,percocet,flagyl,floxin,sulfa,cipro, CO asa,zelnorm,percocet,flagyl,floxin,sulfa,cipro, CO asa,zelnorm,percocet,flagyl,floxin,sulfa,cipro, CO asa,zelnorm,percocet,flagyl,floxin,sulfa,cipro, CO asa,zelnorm,percocet,flagyl,floxin,sulfa,cipro, CO asa,zelnorm,percocet,flagyl,floxin,sulfa,cipro, CO asa,zelnorm,percocet,flagyl,floxin,sulfa,cipro, CO CHICKEN,TURKEY,ASA,ZELNORM,FLAGYL,PERCOCET,ASA,COB asa,zelnorm,percocet,flagyl,floxin,sulfa,cipro, CO asa,zelnorm,percocet,flagyl,floxin,sulfa,cipro, CO asa,zelnorm,percocet,flagyl,floxin,sulfa,cipro, CO asa,zelnorm,percocet,flagyl,floxin,sulfa,cipro, CO CHICKEN,TURKEY,ASA,ZELNORM,FLAGYL,PERCOCET,ASA,COB asa,zelnorm,percocet,flagyl,floxin,sulfa,cipro, CO asa,zelnorm,percocet,flagyl,floxin,sulfa,cipro, CO asa,zelnorm,percocet,flagyl,floxin,sulfa,cipro, CO asa,zelnorm,percocet,flagyl,floxin,sulfa,cipro, CO CHICKEN,TURKEY,ASA,ZELNORM,FLAGYL,PERCOCET,ASA,COB asa,zelnorm,percocet,flagyl,floxin,sulfa,cipro, CO asa,zelnorm,percocet,flagyl,floxin,sulfa,cipro, CO asa,zelnorm,percocet,flagyl,floxin,sulfa,cipro, CO asa,zelnorm,percocet,flagyl,floxin,sulfa,cipro, CO asa,zelnorm,percocet,flagyl,floxin,sulfa,cipro, CO asa,zelnorm,percocet,flagyl,floxin,sulfa,cipro, CO asa,zelnorm,percocet,flagyl,floxin,sulfa,cipro, CO asa,zelnorm,percocet,flagyl,floxin,sulfa,cipro, CO asa,zelnorm,percocet,flagyl,floxin,sulfa,cipro, CO asa,zelnorm,percocet,flagyl,floxin,sulfa,cipro, CO asa,zelnorm,percocet,flagyl,floxin,sulfa,cipro, CO CHICKEN,TURKEY,ASA,ZELNORM,FLAGYL,PERCOCET,ASA,COB asa,zelnorm,percocet,flagyl,floxin,sulfa,cipro, CO asa,zelnorm,percocet,flagyl,floxin,sulfa,cipro, CO aspirin acetaminophen asa,zelnorm,percocet,flagyl,floxin,sulfa,cipro, CO asa,zelnorm,percocet,flagyl,floxin,sulfa,cipro, CO asa,zelnorm,percocet,flagyl,floxin,sulfa,cipro, CO asa,zelnorm,percocet,flagyl,floxin,sulfa,cipro, CO asa,zelnorm,percocet,flagyl,floxin,sulfa,cipro, CO asa,zelnorm,percocet,flagyl,floxin,sulfa,cipro, CO asa,zelnorm,percocet,flagyl,floxin,sulfa,cipro, CO asa,zelnorm,percocet,flagyl,floxin,sulfa,cipro, CO asa,zelnorm,percocet,flagyl,floxin,sulfa,cipro, CO asa,zelnorm,percocet,flagyl,floxin,sulfa,cipro, CO asa,zelnorm,percocet,flagyl,floxin,sulfa,cipro, CO asa,zelnorm,percocet,flagyl,floxin,sulfa,cipro, CO asa,zelnorm,percocet,flagyl,floxin,sulfa,cipro, CO asa,zelnorm,percocet,flagyl,floxin,sulfa,cipro, CO asa,zelnorm,percocet,flagyl,floxin,sulfa,cipro, CO asa,zelnorm,percocet,flagyl,floxin,sulfa,cipro, CO asa,zelnorm,percocet,flagyl,floxin,sulfa,cipro, CO asa,zelnorm,percocet,flagyl,floxin,sulfa,cipro, CO asa,zelnorm,percocet,flagyl,floxin,sulfa,cipro, CO asa,zelnorm,percocet,flagyl,floxin,sulfa,cipro, CO asa,zelnorm,percocet,flagyl,floxin,sulfa,cipro, CO CHICKEN,TURKEY,ASA,ZELNORM,FLAGYL,PERCOCET,ASA,COB asa,zelnorm,percocet,flagyl,floxin,sulfa,cipro, CO asa,zelnorm,percocet,flagyl,floxin,sulfa,cipro, CO asa,zelnorm,percocet,flagyl,floxin,sulfa,cipro, CO asa,zelnorm,percocet,flagyl,floxin,sulfa,cipro, CO asa,zelnorm,percocet,flagyl,floxin,sulfa,cipro, CO asa,zelnorm,percocet,flagyl,floxin,sulfa,cipro, CO asa,zelnorm,percocet,flagyl,floxin,sulfa,cipro, CO asa,zelnorm,percocet,flagyl,floxin,sulfa,cipro, CO asa,zelnorm,percocet,flagyl,floxin,sulfa,cipro, CO asa,zelnorm,percocet,flagyl,floxin,sulfa,cipro, CO asa,zelnorm,percocet,flagyl,floxin,sulfa,cipro, CO asa,zelnorm,percocet,flagyl,floxin,sulfa,cipro, CO asa,zelnorm,percocet,flagyl,floxin,sulfa,cipro, CO asa,zelnorm,percocet,flagyl,floxin,sulfa,cipro, CO asa,zelnorm,percocet,flagyl,floxin,sulfa,cipro, CO asa,zelnorm,percocet,flagyl,floxin,sulfa,cipro, CO asa,zelnorm,percocet,flagyl,floxin,sulfa,cipro, CO asa,zelnorm,percocet,flagyl,floxin,sulfa,cipro, CO asa,zelnorm,percocet,flagyl,floxin,sulfa,cipro, CO asa,zelnorm,percocet,flagyl,floxin,sulfa,cipro, CO asa,zelnorm,percocet,flagyl,floxin,sulfa,cipro, CO CHICKEN,TURKEY,ASA,ZELNORM,FLAGYL,PERCOCET,ASA,COB asa,zelnorm,percocet,flagyl,floxin,sulfa,cipro, CO asa,zelnorm,percocet,flagyl,floxin,sulfa,cipro, CO asa,zelnorm,percocet,flagyl,floxin,sulfa,cipro, CO asa,zelnorm,percocet,flagyl,floxin,sulfa,cipro, CO asa,zelnorm,percocet,flagyl,floxin,sulfa,cipro, CO asa,zelnorm,percocet,flagyl,floxin,sulfa,cipro, CO asa,zelnorm,percocet,flagyl,floxin,sulfa,cipro, CO asa,zelnorm,percocet,flagyl,floxin,sulfa,cipro, CO asa,zelnorm,percocet,flagyl,floxin,sulfa,cipro, CO asa,zelnorm,percocet,flagyl,floxin,sulfa,cipro, CO asa,zelnorm,percocet,flagyl,floxin,sulfa,cipro, CO asa,zelnorm,percocet,flagyl,floxin,sulfa,cipro, CO asa,zelnorm,percocet,flagyl,floxin,sulfa,cipro, CO asa,zelnorm,percocet,flagyl,floxin,sulfa,cipro, CO asa,zelnorm,percocet,flagyl,floxin,sulfa,cipro, CO asa,zelnorm,percocet,flagyl,floxin,sulfa,cipro, CO asa,zelnorm,percocet,flagyl,floxin,sulfa,cipro, CO asa,zelnorm,percocet,flagyl,floxin,sulfa,cipro, CO asa,zelnorm,percocet,flagyl,floxin,sulfa,cipro, CO asa,zelnorm,percocet,flagyl,floxin,sulfa,cipro, CO asa,zelnorm,percocet,flagyl,floxin,sulfa,cipro, CO asa,zelnorm,percocet,flagyl,floxin,sulfa,cipro, CO asa,zelnorm,percocet,flagyl,floxin,sulfa,cipro, CO asa,zelnorm,percocet,flagyl,floxin,sulfa,cipro, CO asa,zelnorm,percocet,flagyl,floxin,sulfa,cipro, CO CHICKEN,TURKEY,ASA,ZELNORM,FLAGYL,PERCOCET,ASA,COB asa,zelnorm,percocet,flagyl,floxin,sulfa,cipro, CO asa,zelnorm,percocet,flagyl,floxin,sulfa,cipro, CO asa,zelnorm,percocet,flagyl,floxin,sulfa,cipro, CO ASA (aspirin) Acetaminophen/Oxycodone Hydr ciprofloxacin Metronidazole asa,zelnorm,percocet,flagyl,floxin,sulfa,cipro, CO CHICKEN,TURKEY,ASA,ZELNORM,FLAGYL,PERCOCET,ASA,COB asa,zelnorm,percocet,flagyl,floxin,sulfa,cipro, CO asa,zelnorm,percocet,flagyl,floxin,sulfa,cipro, CO asa,zelnorm,percocet,flagyl,floxin,sulfa,cipro, CO asa,zelnorm,percocet,flagyl,floxin,sulfa,cipro, CO asa,zelnorm,percocet,flagyl,floxin,sulfa,cipro, CO asa,zelnorm,percocet,flagyl,floxin,sulfa,cipro, CO asa,zelnorm,percocet,flagyl,floxin,sulfa,cipro, CO asa,zelnorm,percocet,flagyl,floxin,sulfa,cipro, CO asa,zelnorm,percocet,flagyl,floxin,sulfa,cipro, CO asa,zelnorm,percocet,flagyl,floxin,sulfa,cipro, CO asa,zelnorm,percocet,flagyl,floxin,sulfa,cipro, CO asa,zelnorm,percocet,flagyl,floxin,sulfa,cipro, CO asa,zelnorm,percocet,flagyl,floxin,sulfa,cipro, CO asa,zelnorm,percocet,flagyl,floxin,sulfa,cipro, CO asa,zelnorm,percocet,flagyl,floxin,sulfa,cipro, CO asa,zelnorm,percocet,flagyl,floxin,sulfa,cipro, CO asa,zelnorm,percocet,flagyl,floxin,sulfa,cipro, CO asa,zelnorm,percocet,flagyl,floxin,sulfa,cipro, CO asa,zelnorm,percocet,flagyl,floxin,sulfa,cipro, CO asa,zelnorm,percocet,flagyl,floxin,sulfa,cipro, CO asa,zelnorm,percocet,flagyl,floxin,sulfa,cipro, CO asa,zelnorm,percocet,flagyl,floxin,sulfa,cipro, CO asa,zelnorm,percocet,flagyl,floxin,sulfa,cipro, CO asa,zelnorm,percocet,flagyl,floxin,sulfa,cipro, CO asa,zelnorm,percocet,flagyl,floxin,sulfa,cipro, CO asa,zelnorm,percocet,flagyl,floxin,sulfa,cipro, CO CHICKEN,TURKEY,ASA,ZELNORM,FLAGYL,PERCOCET,ASA,COB asa,zelnorm,percocet,flagyl,floxin,sulfa,cipro, CO asa,zelnorm,percocet,flagyl,floxin,sulfa,cipro, CO asa,zelnorm,percocet,flagyl,floxin,sulfa,cipro, CO asa,zelnorm,percocet,flagyl,floxin,sulfa,cipro, CO asa,zelnorm,percocet,flagyl,floxin,sulfa,cipro, CO asa,zelnorm,percocet,flagyl,floxin,sulfa,cipro, CO asa,zelnorm,percocet,flagyl,floxin,sulfa,cipro, CO asa,zelnorm,percocet,flagyl,floxin,sulfa,cipro, CO asa,zelnorm,percocet,flagyl,floxin,sulfa,cipro, CO asa,zelnorm,percocet,flagyl,floxin,sulfa,cipro, CO asa,zelnorm,percocet,flagyl,floxin,sulfa,cipro, CO asa,zelnorm,percocet,flagyl,floxin,sulfa,cipro, CO asa,zelnorm,percocet,flagyl,floxin,sulfa,cipro, CO asa,zelnorm,percocet,flagyl,floxin,sulfa,cipro, CO asa,zelnorm,percocet,flagyl,floxin,sulfa,cipro, CO CHICKEN,TURKEY,ASA,ZELNORM,FLAGYL,PERCOCET,ASA,COB asa,zelnorm,percocet,flagyl,floxin,sulfa,cipro, CO asa,zelnorm,percocet,flagyl,floxin,sulfa,cipro, CO asa,zelnorm,percocet,flagyl,floxin,sulfa,cipro, CO asa,zelnorm,percocet,flagyl,floxin,sulfa,cipro, CO asa,zelnorm,percocet,flagyl,floxin,sulfa,cipro, CO asa,zelnorm,percocet,flagyl,floxin,sulfa,cipro, CO asa,zelnorm,percocet,flagyl,floxin,sulfa,cipro, CO asa,zelnorm,percocet,flagyl,floxin,sulfa,cipro, CO asa,zelnorm,percocet,flagyl,floxin,sulfa,cipro, CO asa,zelnorm,percocet,flagyl,floxin,sulfa,cipro, CO asa,zelnorm,percocet,flagyl,floxin,sulfa,cipro, CO asa,zelnorm,percocet,flagyl,floxin,sulfa,cipro, CO asa,zelnorm,percocet,flagyl,floxin,sulfa,cipro, CO asa,zelnorm,percocet,flagyl,floxin,sulfa,cipro, CO asa,zelnorm,percocet,flagyl,floxin,sulfa,cipro, CO asa,zelnorm,percocet,flagyl,floxin,sulfa,cipro, CO asa,zelnorm,percocet,flagyl,floxin,sulfa,cipro, CO [place],TUR[place],ASA,ZELNORM,FLAGYL,PERCOCET,ASA,COB asa,zelnorm,percocet,flagyl,floxin,sulfa,cipro, CO asa,zelnorm,percocet,flagyl,floxin,sulfa,cipro, CO asa,zelnorm,percocet,flagyl,floxin,sulfa,cipro, CO asa,zelnorm,percocet,flagyl,floxin,sulfa,cipro, CO asa,zelnorm,percocet,flagyl,floxin,sulfa,cipro, CO asa,zelnorm,percocet,flagyl,floxin,sulfa,cipro, CO asa,zelnorm,percocet,flagyl,floxin,sulfa,cipro, CO asa,zelnorm,percocet,flagyl,floxin,sulfa,cipro, CO asa,zelnorm,percocet,flagyl,floxin,sulfa,cipro, CO asa,zelnorm,percocet,flagyl,floxin,sulfa,cipro, CO asa,zelnorm,percocet,flagyl,floxin,sulfa,cipro, CO asa,zelnorm,percocet,flagyl,floxin,sulfa,cipro, CO asa,zelnorm,percocet,flagyl,floxin,sulfa,cipro, CO asa,zelnorm,percocet,flagyl,floxin,sulfa,cipro, CO asa,zelnorm,percocet,flagyl,floxin,sulfa,cipro, CO asa,zelnorm,percocet,flagyl,floxin,sulfa,cipro, CO asa,zelnorm,percocet,flagyl,floxin,sulfa,cipro, CO asa,zelnorm,percocet,flagyl,floxin,sulfa,cipro, CO asa,zelnorm,percocet,flagyl,floxin,sulfa,cipro, CO asa,zelnorm,percocet,flagyl,floxin,sulfa,cipro, CO asa,zelnorm,percocet,flagyl,floxin,sulfa,cipro, CO asa,zelnorm,percocet,flagyl,floxin,sulfa,cipro, CO asa,zelnorm,percocet,flagyl,floxin,sulfa,cipro, CO asa,zelnorm,percocet,flagyl,floxin,sulfa,cipro, CO asa,zelnorm,percocet,flagyl,floxin,sulfa,cipro, CO asa,zelnorm,percocet,flagyl,floxin,sulfa,cipro, CO asa,zelnorm,percocet,flagyl,floxin,sulfa,cipro, CO asa,zelnorm,percocet,flagyl,floxin,sulfa,cipro, CO asa,zelnorm,percocet,flagyl,floxin,sulfa,cipro, CO asa,zelnorm,percocet,flagyl,floxin,sulfa,cipro, CO CH[place],TURKEY,ASA,ZELNORM,FLAGYL,PERCOCET,ASA,COB asa,zelnorm,percocet,flagyl,floxin,sulfa,cipro, CO asa,zelnorm,percocet,flagyl,floxin,sulfa,cipro, CO asa,zelnorm,percocet,flagyl,floxin,sulfa,cipro, CO asa,zelnorm,percocet,flagyl,floxin,sulfa,cipro, CO asa,zelnorm,percocet,flagyl,floxin,sulfa,cipro, CO asa,zelnorm,percocet,flagyl,floxin,sulfa,cipro, CO asa,zelnorm,percocet,flagyl,floxin,sulfa,cipro, CO asa,zelnorm,percocet,flagyl,floxin,sulfa,cipro, CO asa,zelnorm,percocet,flagyl,floxin,sulfa,cipro, CO asa,zelnorm,percocet,flagyl,floxin,sulfa,cipro, CO asa,zelnorm,percocet,flagyl,floxin,sulfa,cipro, CO asa,zelnorm,percocet,flagyl,floxin,sulfa,cipro, CO asa,zelnorm,percocet,flagyl,floxin,sulfa,cipro, CO asa,zelnorm,percocet,flagyl,floxin,sulfa,cipro, CO asa,zelnorm,percocet,flagyl,floxin,sulfa,cipro, CO asa,zelnorm,percocet,flagyl,floxin,sulfa,cipro, CO asa,zelnorm,percocet,flagyl,floxin,sulfa,cipro, CO asa,zelnorm,percocet,flagyl,floxin,sulfa,cipro, CO asa,zelnorm,percocet,flagyl,floxin,sulfa,cipro, CO asa,zelnorm,percocet,flagyl,floxin,sulfa,cipro, CO asa,zelnorm,percocet,flagyl,floxin,sulfa,cipro, CO asa,zelnorm,percocet,flagyl,floxin,sulfa,cipro, CO asa,zelnorm,percocet,flagyl,floxin,sulfa,cipro, CO asa,zelnorm,percocet,flagyl,floxin,sulfa,cipro, CO asa,zelnorm,percocet,flagyl,floxin,sulfa,cipro, CO asa,zelnorm,percocet,flagyl,floxin,sulfa,cipro, CO asa,zelnorm,percocet,flagyl,floxin,sulfa,cipro, CO asa,zelnorm,percocet,flagyl,floxin,sulfa,cipro, CO asa,zelnorm,percocet,flagyl,floxin,sulfa,cipro, CO asa,zelnorm,percocet,flagyl,floxin,sulfa,cipro, CO asa,zelnorm,percocet,flagyl,floxin,sulfa,cipro, CO asa,zelnorm,percocet,flagyl,floxin,sulfa,cipro, CO asa,zelnorm,percocet,flagyl,floxin,sulfa,cipro, CO asa,zelnorm,percocet,flagyl,floxin,sulfa,cipro, CO asa,zelnorm,percocet,flagyl,floxin,sulfa,cipro, CO [place]UR[place],ASA,ZELNORM,FLAGYL,PERCOCET,ASA,COB asa,zelnorm,percocet,flagyl,floxin,sulfa,cipro, CO asa,zelnorm,percocet,flagyl,floxin,sulfa,cipro, CO asa,zelnorm,percocet,flagyl,floxin,sulfa,cipro, CO asa,zelnorm,percocet,flagyl,floxin,sulfa,cipro, CO asa,zelnorm,percocet,flagyl,floxin,sulfa,cipro, CO asa,zelnorm,percocet,flagyl,floxin,sulfa,cipro, CO asa,zelnorm,percocet,flagyl,floxin,sulfa,cipro, CO asa,zelnorm,percocet,flagyl,floxin,sulfa,cipro, CO asa,zelnorm,percocet,flagyl,floxin,sulfa,cipro, CO asa,zelnorm,percocet,flagyl,floxin,sulfa,cipro, CO asa,zelnorm,percocet,flagyl,floxin,sulfa,cipro, CO [place],ASA,ZELNORM,FLAGYL,PERCOCET,ASA,COB asa,zelnorm,percocet,flagyl,floxin,sulfa,cipro, CO asa,zelnorm,percocet,flagyl,floxin,sulfa,cipro, CO asa,zelnorm,percocet,flagyl,floxin,sulfa,cipro, CO asa,zelnorm,percocet,flagyl,floxin,sulfa,cipro, CO asa,zelnorm,percocet,flagyl,floxin,sulfa,cipro, CO [place],ASA,ZELNORM,FLAGYL,PERCOCET,ASA,COB asa,zelnorm,percocet,flagyl,floxin,sulfa,cipro, CO asa,zelnorm,percocet,flagyl,floxin,sulfa,cipro, CO asa,zelnorm,percocet,flagyl,floxin,sulfa,cipro, CO asa,zelnorm,percocet,flagyl,floxin,sulfa,cipro, CO asa,zelnorm,percocet,flagyl,floxin,sulfa,cipro, CO asa,zelnorm,percocet,flagyl,floxin,sulfa,cipro, CO asa,zelnorm,percocet,flagyl,floxin,sulfa,cipro, CO asa,zelnorm,percocet,flagyl,floxin,sulfa,cipro, CO asa,zelnorm,percocet,flagyl,floxin,sulfa,cipro, CO asa,zelnorm,percocet,flagyl,floxin,sulfa,cipro, CO asa,zelnorm,percocet,flagyl,floxin,sulfa,cipro, CO asa,zelnorm,percocet,flagyl,floxin,sulfa,cipro, CO asa,zelnorm,percocet,flagyl,floxin,sulfa,cipro, CO asa,zelnorm,percocet,flagyl,floxin,sulfa,cipro, CO asa,zelnorm,percocet,flagyl,floxin,sulfa,cipro, CO asa,zelnorm,percocet,flagyl,floxin,sulfa,cipro, CO asa,zelnorm,percocet,flagyl,floxin,sulfa,cipro, CO asa,zelnorm,percocet,flagyl,floxin,sulfa,cipro, CO [place],ASA,ZELNORM,FLAGYL,PERCOCET,ASA,COB asa,zelnorm,percocet,flagyl,floxin,sulfa,cipro, CO asa,zelnorm,percocet,flagyl,floxin,sulfa,cipro, CO asa,zelnorm,percocet,flagyl,floxin,sulfa,cipro, CO asa,zelnorm,percocet,flagyl,floxin,sulfa,cipro, CO asa,zelnorm,percocet,flagyl,floxin,sulfa,cipro, CO asa,zelnorm,percocet,flagyl,floxin,sulfa,cipro, CO asa,zelnorm,percocet,flagyl,floxin,sulfa,cipro, CO asa,zelnorm,percocet,flagyl,floxin,sulfa,cipro, CO asa,zelnorm,percocet,flagyl,floxin,sulfa,cipro, CO asa,zelnorm,percocet,flagyl,floxin,sulfa,cipro, CO asa,zelnorm,percocet,flagyl,floxin,sulfa,cipro, CO asa,zelnorm,percocet,flagyl,floxin,sulfa,cipro, CO asa,zelnorm,percocet,flagyl,floxin,sulfa,cipro, CO asa,zelnorm,percocet,flagyl,floxin,sulfa,cipro, CO asa,zelnorm,percocet,flagyl,floxin,sulfa,cipro, CO asa,zelnorm,percocet,flagyl,floxin,sulfa,cipro, CO asa,zelnorm,percocet,flagyl,floxin,sulfa,cipro, CO asa,zelnorm,percocet,flagyl,floxin,sulfa,cipro, CO asa,zelnorm,percocet,flagyl,floxin,sulfa,cipro, CO asa,zelnorm,percocet,flagyl,floxin,sulfa,cipro, CO asa,zelnorm,percocet,flagyl,floxin,sulfa,cipro, CO asa,zelnorm,percocet,flagyl,floxin,sulfa,cipro, CO asa,zelnorm,percocet,flagyl,floxin,sulfa,cipro, CO asa,zelnorm,percocet,flagyl,floxin,sulfa,cipro, CO Vital Signs Time BP (mmHg) HR (bpm) O2 Sat. RR (bpm) LOC 02:30 PM / % 5 = Fully awake and oriented or at pre-proc level 02:30 PM / % 4 = Oriented but drowsy 02:46 PM / % 4 = Oriented but drowsy 02:35 PM 132 / 70 48 98 % 17 02:40 PM 130 / 63 57 100 % 14 02:45 PM 114 / 61 61 100 % 16 02:50 PM 124 / 63 65 100 % 10 02:55 PM 130 / 60 61 100 % 12 03:00 PM 132 / 51 63 100 % 6 Procedural Medications Time Medication Dose Units Method Given By 02:30 PM Oxygen 2 L/min nasal cannula Derek Santana RN 02:40 PM Versed 1 mg Intravenous Derek Santana RN 02:40 PM Fentanyl 50 mcg Intravenous Derek Santana RN 02:46 PM Lidocaine 2% 20 ml Subcutaneous Richard Jenkins MD 02:53 PM Lidocaine 2% 10 ml Subcutaneous Richard Jenkins MD ASA Classification: CLASS II- Mild systemic disease (i.e. well-controlled diabetes, hypertension, asthma, cigarette smoking) Motny Score Preprocedure Postprocedure Activity 2- Moves 4 extremities sustained head lift Activity 2- Moves 4 extremities sustained head lift Circulation 2- SBP +/= 20 points of pre-anesthetic level Circulation 2- SBP +/= 20 points of pre-anesthetic level Consciousness 2- Awake and alert oriented x 3 Consciousness 2- Awake and alert oriented x 3 O2 Saturation 2- Able to maintain O2 satruation of 92% on room air O2 Saturation 2- Able to maintain O2 satruation of 92% on room air Respiratory 2- Able to deep breathe and cough well Respiratory 2- Able to deep breathe and cough well Total Score 10 Total Score 10 Contrast Agent: Isovue Diagnostic Contrast: 23 ml Total Contrast: 23 ml Fluoro Dose: 15 mGy Procedure Log Time Note Enter By 02:30 PM [facility]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 02:30 PM Esther, Derek RN Position: Regulatory And Compliance Technician Time in: 14:30 [facility] 02:30 PM Trang Rodríguez RT (R) Position: Scrub [facility]: 14:30 [facility] PM Patient charges- Angio tray pack, Navilyst 3mm J, Pulse Oximetry and ACIST tubing and transducer tsoummers 02:30 PM Case Delayed No oummers 02:30 PM Hair removed from procedure site in procedure lab using clippers. Bilateral groin prepped with Chloraprep by Anne, Trang RT (R), then patient was draped. Skin intact. [facility] 02:30 PM Meet and greet completed [facility] 02:30 PM Sign in performed according to hospital policy. mmers 02:30 PM Procedure start 14:30 tsoummers 02:30 PM Time: 14:30 Oxygen on at 2 L/min per nasal cannula by Derek Santana RN [facility] 02:30 PM Time: 14:30 Patient comfortable and pain free: Yes mm:30 PM Time: 14:30LOC: 5 = Fully awake and oriented or at pre-proc level mm 02:31 PM CathStat 02:31 PM Clinical Presentation: Unstable angina [facility] 02:34 PM Vitals capture started with the following parameters, Patient=Adult, Interval=5 min, Initial Rmruajqz=758 mmHg, Deflation Rate=3 mmHg, Cuff placed on Right Arm 02:35 PM HR=48 bpm, ACBG=754/70 mmhg, SpO2=98.0 %, Resp=17 B/min, Comment=SB 02:38 PM ASA Class CLASS II- Mild systemic disease (i.e. well-controlled diabetes, hypertension, asthma, cigarette smoking) mm 02:40 PM Time: 14:40 Versed 1 mg Intravenous Given by Derek Santana RN [facility] 02:40 PM Time: 14:40 Fentanyl 50 mcg Intravenous Given by Derek Santana RN [facility] 02:40 PM HR=57 bpm, SEDC=876/63 mmhg, YbB0=789.0 %, Resp=14 B/min, EtCO2=37 mmHg, Comment=SB 02:45 PM HR=61 bpm, VNYR=325/61 mmhg, ElM0=450.0 %, Resp=16 B/min, EtCO2=38 mmHg 02:46 PM Time: 14:30LOC: 4 = Oriented but drowsy 02:46 PM Time: 14:30 Patient comfortable and pain free: Yes 02:46 PM Pressure channel 1 zeroed. 02:46 PM Time out performed according to hospital policy 02:47 PM Time: 14:46 20 ml Lidocaine 2% to right groin Subcutaneous Given by Richard Jenkins MD zenaida 02:48 PM Recorded ECG: HR=62 Condition=Condition 1 02:49 PM Micro-Introducer Kit utilized for sheath placement 02:50 PM HR=65 bpm, LYGK=246/63 mmhg, AdF5=603.0 %, Resp=10 B/min, EtCO2=27 mmHg, Comment=nsr 02:53 PM Time: 14:53 10 ml Lidocaine 2% to right groin Subcutaneous Given by Richard Jenkins MD 02:55 PM HR=61 bpm, LWQD=212/60 mmhg, CdR0=143.0 %, Resp=12 B/min, EtCO2=32 mmHg, Comment=nsr 02:56 PM Access obtained by percutaneous puncture. 6Fr 10cm Terumo [place] sheath placed in right Femoral artery. [id number] mm 02:56 PM 0.035 145cm Navilyst 3mmJ wire [id number] 02:56 PM 5Fr FR 4 catheter inserted over the wire [facility] 02:56 PM Wire removed 02:57 PM Recorded Pressure: Ao, HR=67, Condition=Condition 1 (Aorta) Ao 123/82/101 02:57 PM Coronary Dominance: right 02:57 PM RCA angiography performed in multiple views. mm 02:57 PM Catheter removed 02:57 PM 5Fr FL 4 catheter inserted over the wire [facility] 02:58 PM LCA angiography performed in multiple views. 02:59 PM Recorded Pressure: Ao, HR=59, Condition=Condition 1 (Aorta) Ao 124/72/94 02:59 PM [facility] PM 5Fr Pigtail catheter inserted over the wire [facility] 03:[facility] PM Catheter selectively placed in left ventricle tsoummers 03:00 PM HR=63 bpm, ENEL=162/51 mmhg, YiV6=102.0 %, Resp=6 B/min, EtCO2=34 mmHg, Comment=nsr 03:00 PM Recorded Pressure: LV, HR=56, Condition=Condition 1 (Left Ventricle) LV 129/13/14 03:01 PM Recorded Pressure: LV, Ao, HR=61, Condition=Condition 1 (Left Ventricle) LV 145/15/16, (Aorta) Ao 126/63/90 03:01 PM Time: 14:46 Patient comfortable and pain free: Yes tsoummers 03:01 PM Time: 14:46LOC: 4 = Oriented but drowsy tsoummers 03:01 PM pressures obtained, no injection administered tsoummers 03:01 PM Catheter removed tsoummers 03:01 PM Procedure completed at 15:01 03/16/2018 tsoummers 03:01 PM Did you address [place] flow and Dominance? Yes tsoummers 03:02 PM Sign out completed: Radiation Dose 134.67 mGy, 14.5268 Gy/cm2 Fluoro Time: 1.6 Isovue 370 - 200ml contrast 23 ml given by Richard Jenkins MD. Complications: NoneCardiac Rehab Consult needed: NoConfirmed administered medications: Yes tsoummers 03:02 PM Isovue 370 - 200ml,1 Bottle(s) used. tsoummers 03:02 PM Estimated Blood Loss: minimal tsoummers 03:03 PM Post ECG Sinus Bradycardia tsoummers 03:03 PM Post Blood Pressure 132/51 tsoummers 03:03 PM Information taught Cardiac Cath and Angioseal tsoummers 03:03 PM Education needs Procedure, Plan of Care, and Responsibilities of Patient in Care tsoummers 03:03 PM Learning barriers :None tsoummers 03:03 PM Education Methods Verbal tsoummers 03:03 PM Education evaluation Able to repeat information tsoummers 03:03 PM Arterial sheath pulled, Angio-seal closure device used and was Successful [id number] S/N. tsoummers 03:04 PM Site status No bleeding/hematoma - Rt Groin as reported by Sites, Trang RT (R) at 15:04 tsoummers 03:04 PM Opsite applied tsoummers 03:04 PM Plavix, Effient or Brilinta given No tsoummers 03:04 PM Delay to floor No tsoummers 03:04 PM Family placed in consult room. tsoummers 03:04 PM Complications: None tsoummers 03:11 PM Patient out of room: 15:11 tsoummhever Complications Complication None Hemodynamics Pressures Site Systolic/A Wave Diastolic/V Wave Mean AO 123 82 101 AO 124 72 94 LV 129 13 14 LV 145 15 16 AO 126 63 90 Post Procedure Information Blood Pressure: 132/51 mmHg Rhythm: Sinus Bradycardia Post procedural instructions were given Closure Device Time Device Success/Fail 03/16/2018 3:04:00 PM Angio-Seal VIP Successful Site Checks Time Location Status Staff Sheath In? Note 03:04 PM Rt Groin No bleeding/hematoma Sites, Trang RT (R) Pulses Time Site Pre-Procedure Post-Procedure Note Bilateral radial 2+ Bilateral DP & PT 2+ Updated by Kinsey Jimenez RN on 03/16/2018 3:11:36 PM electronically signed on 03/16/2018 3:13:31 PM with status of Final
[2018-03-16 21:51] LABS: Bilirubin,Urine Negative (Negative); Blood,Urine Negative (Negative); Clarity,Urine Clear (Clear); Color,Urine Yellow (Yellow); Glucose,Urine (UA) Normal (Normal); Ketones,Urine Negative (Negative); Leukocyte Esterase,Urine Negative (Negative); Nitrite,Urine Negative (Negative); Protein,Urine Negative (Neg-Trace); Specific Gravity,Urine 1.016 (1.010-1.025); Urobilinogen,Urine Normal (Normal)
[2018-03-17] MEDS: Azelastine 0.1% Nasal Spray 30 ML BOTTLE NS SCH ×3 (00:28→22:06)
[2018-03-17] MEDS ORDERED: 0.9 % Sodium Chloride 500 ML IVC PRN (05:34)
[2018-03-17] MEDS: Ondansetron 4 MG/2 ML VIAL IVP PRN (06:39)
[2018-03-17] MEDS: Heparin 25,000 UNIT/500 ML D5W 25,000 UNIT/500 ML BAG IVC SCH (09:56)
--- NOTE | 2018-03-17 11:35 | Electrophysiology Consult Note ---
<Srikanth Yen - Last Filed: 03/17/18 12:43> Date of Encounter: 03/17/18 Time of Encounter: 11:25 Assessment and Plan (1) Bradycardia Current Visit: Yes Status: Chronic Noted bradycardia and hypotension at times with symptoms. Extensive cardiac work-up with no concerning findings. Troponin negative. Stress test 02/2018 negative for ischemia. TTE 02/2018 EF preserved and no significant valvular disease. Holter monitor reviewed. Avg HR 64 BPM, Min HR 38 bpm at 0700 am. Symptoms reported but unable to correlate due to not times documented. [facility] 03/16/18- normal coronary arteries. TSH normal. [place] antibody was negative. Recommend proceeding with MRI for TIA symptoms. Consider cortisol test. Telemetry review shows AVg HR 53 bpm, minimum HR 43 bpm at 0753 am. HR in the upper 40's during my exam and b/p in the 80's systolic. C/o intermittent dizziness with rest. Reviewed with Dr. Gilberto Calvillo. Possible Loop recorder placement during stay. (2) Atrial arrhythmia Current Visit: Yes Status: Acute Sinus arrhythmia, junctional rhythm and concern for possible afib. Reviewed with Dr. Calvillo. No definite afib seen. Mostly SB with sinus arrhythmia. Occasional fluctuations in HR noted. Possible vasovagal response. Further evaluation with loop recorder recommended. Need to r/o afib with history of TIA. Discussion w patient/family: The assessment and plan as outlined above was discussed with the patient and/or family members who expressed understanding and agreement. All questions were answered. Thank you for involving us in the care of your patient. Please call with any questions. History of Present Illness Consult date: 03/17/18 Requesting physician: Tamra Harper Consult reason: bradycardia, atrial arrhythmia Chief complaint: pre-syncope, dizziness, chest pain, slurred speech History of present illness: Ms. Mathews is a 58 year old female with no significant medical history who is being evaluated for chest pain, frequent dizziness, low heart rates, and a episode of slurred speech and balance issues. Reports ongoing nausea and dizziness for 6 months since having colon resection for diverticulitis. It was noticed about three months ago that she had low heart rates at times. She was hospitalized in February for increasing symptoms associated with chest pain. She underwent stress test and echocardiogram with no concerning findings. She wore an out-pt Holter monitor that showed SR-SB. They were unable to correlate symptoms due to no times placed in diary. Lowed HR 38 bpm during nocturnal hours. During this stay she underwent LHC for ongoing chest pain symptoms and EKG changes. LHC demonstrated normal coronary arteries. Electrophysiology is now consulted for on-going atrial arrhythmias, bradycardia, and presyncope symptoms. During my exam HR noted to be 45 bpm. C/o intermittent dizziness that only occurs at rest. No dizziness with standing or moving. Past Med Surg Social Fam HX - Past Medical History Medical history: asthma, fibromyalgia Additional medical history: diverticulitis; [place]/sinus problems Psychiatric history: no psych history - Past Surgical History Surgical History: colectomy, hysterectomy Additional surgical history: bladder tuck, rectocele, carpel tunnel, sinus surgery X3 - Social History Smoking Status: Former smoker Smokeless Tobacco Status: No Alcohol use: rarely Drug use: none - Family History Mother History Unknown: Yes Living Status: Hx Family Cardiac Disorders: No Hx Family Neurologic Disorders: Yes (stroke) Father History Unknown: Yes Living Status: Hx Family Respiratory Disorders: Yes (COPD) Daughter Living Status: Still Living Hx Family Respiratory Disorders: Yes (Multiple PEs) Medications and Allergies Azelastine 0.1% Nasal [place] [Astelin] 1 spr NS BID 02/11/18 [History] Cetirizine HCl [Zyrtec] 10 mg PO DAILY PRN 02/11/18 [History] Cranberry Conc/C/Bacill Coag [Azo Cranberry Tablet] 1 tab PO Q12H 02/11/18 [ History] Mometasone Furoate [Nasonex] 1 spr NS BID 02/11/18 [History] 3 Allergy/AdvReac Type Severity Reaction Status Date / Time nitroglycerin Allergy Severe See Verified 02/11/18 14:34 Comments acetaminophen [From Percocet] Allergy Itching Verified 07/31/17 09:57 ciprofloxacin [From Cipro] Allergy See Verified 07/31/17 09:57 Comments codeine Allergy See Verified 07/31/17 09:57 Comments metronidazole [From Flagyl] Allergy See Verified 07/31/17 09:57 Comments ofloxacin [From Floxin] Allergy See Verified 07/31/17 09:57 Comments Oxycodone [From Percocet] Allergy Itching Verified 07/31/17 09:57 tegaserod [From Zelnorm] Allergy See Verified 07/31/17 09:57 Comments aspirin AdvReac Syncope Verified 02/11/18 13:13 All Systems Review: The remainder of the systems were reviewed and are negative Physical Examination Vital Signs, Last 4 Hours Temp Pulse Resp BP Pulse Ox 03/17/18 11:08 98.3 F 56 16 89/50 97 03/17/18 07:37 98 F 46 16 116/53 97 General: Conversant, No Apparent Distress HEENT: Atraumatic, Normocephaly, Mucus Membranes Moist Neck: No JVD, Normal carotid pulses Cardiac: Reg Rate and Rhythm, Normal S1 and S2, No Murmur Lungs: Normal Breath Sounds, No Wheeze, Rales, Rhonchi Neuro: Alert and responsive, No focal deficits noted Abdomen: Soft, Non-Tender Skin: No rashes noted on visualized skin Musculoskeletal: No Chest Wall Tenderness Extremities: No Clubbing, No Cyanosis, No Edema, Normal Pulses Results 03/16/18 04:13 03/16/18 04:13 - Imaging and Cardiology Stress Test: report reviewed Echo: report reviewed Cardiac cath: report reviewed Holter: report reviewed - EKG Interpretation EKG results cardiology: personally reviewed Consult Discharge Plan - Plan Referrals: Eagle Mcknight MD [Primary Care Provider] - <Gilberto Calvillo - Last Filed: 03/17/18 15:34> Date of Encounter: 03/17/18 - Attending Attestation I have personally performed a face to face evaluation on this patient. I have reviewed and agree with the care plan. History and Exam by me shows: Sinus bradycardia, multiple symptoms. Unclear corrlation with symptoms. Concern also for TIA. Would recommend LOOP recorder. Assessment and Plan Discussion w patient/family: The assessment and plan as outlined above was discussed with the patient and/or family members who expressed understanding and agreement. All questions were answered. Thank you for involving us in the care of your patient. Please call with any questions. History of Present Illness History of present illness: Ms. Mathews is a 58 year old female All Systems Review: The remainder of the systems were reviewed and are negative Results 03/16/18 04:13 03/16/18 04:13
[2018-03-17] MEDS: 0.9 % Sodium Chloride 500 ML IVC PRN (14:02)
[2018-03-17] MEDS: *HR* Heparin 5,000 UNIT/ML VIAL SQ SCH ×2 (14:25→22:05)
--- NOTE | 2018-03-17 15:58 | Internal Med Progress Note ---
Hospitalist Progress Note - Encounter Date of Encounter: 03/17/18 Time of Encounter: 09:00 - Subjective Interval History: No complaint. No dizziness. No weakness/numbness/tingling. No chest pain or shortness of breath. - Exam Vitals: Temp Pulse Resp BP Pulse Ox 98.3 F 56 16 89/50 97 03/17/18 11:08 03/17/18 11:08 03/17/18 11:08 03/17/18 11:08 03/17/18 11:08 Exam: General: Well-developed female sitting up in chair, in no acute distress Skin: Warm and supple HEENT: Moist mucous membranes. Chest: Normal thoracic expansion. Normal breath sounds. Clear to auscultation. Heart: Normal S1 & S2; rhythmic. No rubs or murmurs. Bradycardia+ Abdomen: Non-distended, soft and nontender Extremities: No clubbing, cyanosis or edema. No calf tenderness. Normal distal pulses. Neurological: Awake, alert and oriented to person, place and time. No focal deficits. Psych: Affect appropriate. - Assessment and Plan (1) Chest pain Current Visit: Yes Status: Acute Assessment and Plan: Atypical chest pain with TIA-like symptoms and near syncope, worsening; LHC negative. She has no further chest pain. (2) Bradycardia Current Visit: Yes Status: Chronic Assessment and Plan: HR noted to be in 50s while awake; per previous notes, she had near syncopal episodes associated with bradycardia in 30s; Cardiology on board; continue Telemetry; - Will follow cardiology recommendation to rule out CVA by MRI, morning cortisol to rule out adrenal insufficiency. Plan for loop monitoring. (3) DVT prophylaxis Current Visit: Yes Status: Acute Assessment and Plan: Heparin SC. - Time Spent with Patient Total time spent is greater than 50% in coordination of care (as documented) at patient's floor/unit and/or counseling patient: 30 Minutes 25 - 35 minutes Plan of Care Discussed with: patient Internal Medicine: Result - Labs CBC & Chem 7: 03/16/18 04:13 03/16/18 04:13 Labs: Urine 03/16/18 Range/Units 21:10 Urine Color Yellow (Yellow) Urine Clarity Clear (Clear) Urine pH 7.0 (5.0-8.0) pH Units Ur Specific [place] 1.016 (1.010-1.025) Urine Protein Negative (Neg-Trace) mg/dL Urine Glucose (UA) Normal (Normal) mg/dL - ABG Interpretation ABG results: PT/INR, D-dimer PT 11.5 Seconds (9.4-12.1) 03/16/18 04:13 D-Dimer 267 ng/mLFEU (0-500) 03/15/18 17:05 Consult Discharge Plan - Plan Referrals: Eagle Mcknight MD [Primary Care Provider] - (1) Chest pain Qualifiers: Chest pain type: unspecified Qualified Code(s): R07.9 - Chest pain, unspecified
[2018-03-18 04:40] LABS: Basophils % 0.6 %; Eosinophils # 0.2 K/mcL (0.0-0.6); Eosinophils % 4.5 %; Immature Granulocytes % 0.2 % (0-4); Lymphocytes # 1.8 K/mcL (0.6-4.6); Lymphocytes % 36.3 %; Mean Corpuscular HGB Conc 32.4 g/dL (31.6-35.5); Mean Corpuscular Hemoglobin 30.2 pg (28.0-33.3); Mean Corpuscular Volume 93.2 fL (83.0-100.0); Mean Platelet Volume 9.4 fL (9.4-12.4); Monocytes # 0.4 K/mcL (0.0-1.3); Monocytes % 7.5 %; Neutrophils # 2.6 K/mcL (1.6-8.9); Platelet Count 213 K/mcL (140-400); Red Blood Count 3.97 M/mcL (3.82-4.97); Red Cell Distribution Width 12.8 % (11.5-14.5); Segmented Neutrophils % 50.9 %
[2018-03-18 04:56] LABS: BUN/Creatinine Ratio 13 (6-26); Blood Urea Nitrogen 10 mg/dL (6-20); Carbon Dioxide 25 mEq/L (23-29); Chloride 109 mEq/L (98-107); Glucose 103 mg/dL (70-105); Osmolality,Calculated 291 (280-300); Potassium 3.6 mEq/L (3.5-5.1); Sodium 141 mEq/L (136-145); eGFR For Non-African Americans > 60 (> 60)
[2018-03-18] MEDS: *HR* Heparin 5,000 UNIT/ML VIAL SQ SCH ×3 (05:31→22:02)
[2018-03-18] MEDS: Azelastine 0.1% Nasal Spray 30 ML BOTTLE NS SCH ×2 (08:39→20:59)
[2018-03-18] MEDS: 0.9 % Sodium Chloride 500 ML IVC PRN (08:40)
--- NOTE | 2018-03-18 10:49 | Electrophysiology ProgressNote ---
Date of Encounter: 03/18/18 Time of Encounter: 10:37 Assessment and Plan (1) Bradycardia Current Visit: Yes Status: Chronic Noted bradycardia and hypotension at times with symptoms. Extensive cardiac work-up with no concerning findings. Troponin negative. Stress test 02/2018 negative for ischemia. TTE 02/2018 EF preserved and no significant valvular disease. Holter monitor reviewed. Avg HR 64 BPM, Min HR 38 bpm at 0700 am. Symptoms reported but unable to correlate due to not times documented. [facility] 03/16/18- normal coronary arteries. TSH normal. [place] antibody was negative. MRI negative. Cortisol test negative. Telemetry review shows AVg HR 56 bpm, minimum HR 43 bpm at 0750. HR in the upper 50's during my exam and b/p in the 80's systolic. C/o intermittent dizziness with rest. Reviewed with Dr. Gilberto Calvillo. Likely vasovagal. [place] fluids encouraged. Avoid ice tea. Noted that she had a gallon of tea in her room. Florinef 0.1mg daily started. Loop recorder placement this afternoon and then out-pt f/u recommended. Call with questions. (2) Atrial arrhythmia Current Visit: Yes Status: Acute Sinus arrhythmia, junctional rhythm at times, sinus bradycardia. No afib identified. Reviewed with Dr. Calvillo. No definite afib seen. Mostly SB with sinus arrhythmia. Occasional fluctuations in HR noted. Likely vasovagal response. Further evaluation with loop recorder recommended to r/o afib in the setting of TIA. Discussion w patient/family: The assessment and plan as outlined above was discussed with the patient and/or family members who expressed understanding and agreement. All questions were answered. Thank you for involving us in the care of your patient. Please call with any questions. Subjective Principal diagnosis: Vasovagal syncope Interval history: Ms. Mathews states that she did have dizziness , low HR and low b/p again this morning. IV fluid infusing. Objective Vital Signs, Last 4 Hours Temp Pulse Resp BP Pulse Ox 03/18/18 10:08 109/33 03/18/18 09:34 60 20 117/66 95 03/18/18 07:38 76/47 03/18/18 07:25 97.8 F 48 19 89/45 93 General: Conversant, No Apparent Distress HEENT: Atraumatic, Normocephaly, Mucus Membranes Moist Neck: No JVD, Normal carotid pulses Cardiac: Reg Rate and Rhythm, Normal S1 and S2, No Murmur Lungs: Normal Breath Sounds, No Wheeze, Rales, Rhonchi Neuro: Alert and responsive, No focal deficits noted Abdomen: Soft, Non-Tender Skin: No rashes noted on visualized skin Musculoskeletal: No Chest Wall Tenderness Extremities: No Clubbing, No Cyanosis, No Edema, Normal Pulses Results 03/18/18 04:00 03/18/18 04:00 Lab Results 03/18/18 03/18/18 03/18/18 04:00 04:00 04:00 WBC 5.1 Hgb 12.0 Hct 37.0 Plt Count 213 Sodium 141 Potassium 3.6 Chloride 109 H Carbon Dioxide 25 BUN 10 Creatinine 0.77 Glucose 103 Calcium 9.0 Magnesium 1.8 - Imaging and Cardiology Echo: report reviewed Cardiac cath: report reviewed Holter: report reviewed - EKG Interpretation EKG results cardiology: personally reviewed Consult Discharge Plan - Plan Referrals: Eagle Mcknight MD [Primary Care Provider] -
--- NOTE | 2018-03-18 13:11 | Event Note ---
Date of Encounter: 03/18/18 Time of Encounter: 13:10 - Cardiology Event Note S/p loop recorder. Out-pt f/u will be coordinated with Dr. Gilberto mantilla. Cardiology and EP signing off.
--- NOTE | 2018-03-18 14:08 | Internal Med Progress Note ---
Hospitalist Progress Note - Encounter Date of Encounter: 03/18/18 Time of Encounter: 09:00 - Subjective Interval History: Still has short episodes of bradycardia/hypotension with dizziness. Random cortisol 8.5, fludrocortisone 0.1mg po daily started per cardio. - Exam Vitals: Temp Pulse Resp BP Pulse Ox 96.1 F L 63 16 124/56 98 03/18/18 12:05 03/18/18 13:42 03/18/18 13:42 03/18/18 13:42 03/18/18 13:42 Exam: General: Well-developed female sitting up in chair, in no acute distress Skin: Warm and supple HEENT: Moist mucous membranes. Chest: Normal thoracic expansion. Normal breath sounds. Clear to auscultation. Heart: Normal S1 & S2; rhythmic. No rubs or murmurs. Bradycardia+ Abdomen: Non-distended, soft and nontender Extremities: No clubbing, cyanosis or edema. No calf tenderness. Normal distal pulses. Neurological: Awake, alert and oriented to person, place and time. No focal deficits. Psych: Affect appropriate. - Assessment and Plan (1) Chest pain Current Visit: Yes Status: Acute Assessment and Plan: LHC negative. She has no further chest pain. (2) Bradycardia Current Visit: Yes Status: Chronic Assessment and Plan: HR noted to be in 50s while awake; per previous notes, she had near syncopal episodes associated with bradycardia in 30s; Cardiology and EP consult appreciated. LOOP recorder placed. - Nikhil cardia etiology still undetermined. - Pt report Tick bite 6 month ago, has finished 14 days of po doxycycline. Lyme antibody negative. - Morning cortisol level 8.5, cannot completely r/o adrenal insufficiency, however, pt has no hyponatremia/hyperkalemia, her hypotension is related to bradycardia. Fludrocortisone po added per cardio. - Cardio signed off, will cont closely monitor pt's vitals/symptoms and see if there is any improvement after fludrocortisone use. - Consult PT/OT to determine level of care upon DC. (3) DVT prophylaxis Current Visit: Yes Status: Acute Assessment and Plan: Heparin SC. - Time Spent with Patient Total time spent is greater than 50% in coordination of care (as documented) at patient's floor/unit and/or counseling patient: 30 min 25 - 35 minutes Plan of Care Discussed with: patient Internal Medicine: Result - Labs CBC & Chem 7: 03/18/18 04:00 03/18/18 04:00 Labs: Short CBC 03/18/18 Range/Units 04:00 WBC 5.1 (4.3-11.1) K/mcL Hgb 12.0 (11.5-15.4) g/dL Hct 37.0 (35.3-44.9) % Plt Count 213 (140-400) K/mcL Neutrophils # 2.6 (1.6-8.9) K/mcL BMP 03/18/18 04:00 Sodium 141 Potassium 3.6 Chloride 109 H Carbon Dioxide 25 BUN 10 Creatinine 0.77 Glucose 103 Calcium 9.0 - ABG Interpretation ABG results: PT/INR, D-dimer PT 11.5 Seconds (9.4-12.1) 03/16/18 04:13 D-Dimer 267 ng/mLFEU (0-500) 03/15/18 17:05 - Impressions Impressions Brain MRI 03/17/18 13:01 IMPRESSION: Unremarkable brain MRI. No acute infarct D/ / Ceasar Lynn MD / Ceasar Lynn MD Interpreting Provider: Ceasar Lynn MD Consult Discharge Plan - Plan Referrals: Eagle Mcknight MD [Primary Care Provider] - (1) Chest pain Qualifiers: Chest pain type: unspecified Qualified Code(s): R07.9 - Chest pain, unspecified
[2018-03-18] MEDS: 0.9 % Sodium Chloride 1,000 ML IVC SCH (18:20)
[2018-03-18] MEDS ORDERED: Ibuprofen 400 MG TABLET PO PRN (18:50)
[2018-03-19] MEDS: *HR* Heparin 5,000 UNIT/ML VIAL SQ SCH ×2 (05:55→13:20)
[2018-03-19] MEDS: 0.9 % Sodium Chloride 1,000 ML IVC SCH (05:55)
[2018-03-19] MEDS ORDERED: MOM Conc 10 ML UD.LIQ PO ONE (06:06)
[2018-03-19] MEDS: Azelastine 0.1% Nasal Spray 30 ML BOTTLE NS SCH (09:24)
--- NOTE | 2018-03-19 12:55 | Internal Med Progress Note ---
Hospitalist Progress Note - Encounter Date of Encounter: 03/19/18 Time of Encounter: 09:00 - Subjective Interval History: Report two episodes of dizziness over night, which waken her up. Still shows sometimes bradycardia. PT/OT evaluated pt, recommend resume previous level of care. - Exam Vitals: Temp Pulse Resp BP Pulse Ox 97.6 F 61 18 112/51 99 03/19/18 06:44 03/19/18 11:11 03/19/18 11:11 03/19/18 11:11 03/19/18 11:14 Exam: General: Well-developed female sitting up in chair, in no acute distress Skin: Warm and supple HEENT: Moist mucous membranes. Chest: Normal thoracic expansion. Normal breath sounds. Clear to auscultation. Heart: Normal S1 & S2; rhythmic. No rubs or murmurs. Bradycardia+ Abdomen: Non-distended, soft and nontender Extremities: No clubbing, cyanosis or edema. No calf tenderness. Normal distal pulses. Neurological: Awake, alert and oriented to person, place and time. No focal deficits. Psych: Affect appropriate. - Assessment and Plan (1) Chest pain Current Visit: Yes Status: Acute Assessment and Plan: LHC negative. She has no further chest pain. (2) Bradycardia Current Visit: Yes Status: Chronic Assessment and Plan: HR noted to be in 50s while awake; per previous notes, she had near syncopal episodes associated with bradycardia in 30s; Cardiology and EP consult appreciated. LOOP recorder placed. - Nikhil cardia etiology still undetermined. - Pt report Tick bite 6 month ago, has finished 14 days of po doxycycline. Lyme antibody negative. - Morning cortisol level 8.5, cannot completely r/o adrenal insufficiency, however, pt has no hyponatremia/hyperkalemia, her hypotension is related to bradycardia. Fludrocortisone po added per cardio. - Cardio signed off, will cont closely monitor pt's vitals/symptoms and see if there is any improvement after fludrocortisone use. - Consulted PT/OT, recommend resume previous level of care (3) DVT prophylaxis Current Visit: Yes Status: Acute Assessment and Plan: Heparin SC. - Time Spent with Patient Total time spent is greater than 50% in coordination of care (as documented) at patient's floor/unit and/or counseling patient: 30 min 25 - 35 minutes Plan of Care Discussed with: patient Internal Medicine: Result - Labs CBC & Chem 7: 03/18/18 04:00 03/18/18 04:00 - ABG Interpretation ABG results: PT/INR, D-dimer PT 11.5 Seconds (9.4-12.1) 03/16/18 04:13 D-Dimer 267 ng/mLFEU (0-500) 03/15/18 17:05 Consult Discharge Plan - Plan Additional Instructions: ACTIVITY: Moderate activity for the next 7 days. No lifting more than 5 pounds ( gallon of milk) for 1 week. BATHING /SHOWERING: Do not remove the large bandage over the site for 2 days. Do not allow the device to get wet for 7-10 days. You may bathe/shower, but do not use soap and water on the site. When bathing, keep the site dry by covering with Saran wrap or a towel. WOUND CARE: The white steri-strips will start to peel away and come off after 14 days, or your doctor will remove them after [address] anything into or on top of the incision. Do not use cotton swabs. Do not use any antibiotic ointment or Vitamin E on the site. REMINDERS: Notify security personnel at the airport that you have a device before you go through airport security screening. When at places with security monitors, such as a grocery store, do not linger near these monitors. It is fine to walk past them in a normal manner. Refer to your owners manual for more specific directions. CARRY YOUR IDENTIFICATION CARD WITH YOU AT ALL TIMES Return to work as instructed per physician Resume driving as instructed per physician Keep all scheduled follow up appointments Resume medications as instructed Contact [facility] ( ) if: You develop excessive bleeding from insertion or wound site not controlled by applying pressure You develop a fever greater than 101 degrees Fahrenheit Your incision becomes reddened at or around the site Your incision develops yellowish or greenish drainage or development of white pimple-like bumps You experience excessive pain You experience muscle switching If you experience chest pain, shortness of breath, dizziness, or extreme tiredness, stop the activity and rest. Please notify [facility] office if you experience any of these symptoms and they are not relieved by rest please call 911! Referrals: Eagle Mcknight MD [Primary Care Provider] - (1) Chest pain Qualifiers: Chest pain type: unspecified Qualified Code(s): R07.9 - Chest pain, unspecified
[2018-03-19 15:19] VITALS: BP 114/48
--- NOTE | 2018-03-19 16:56 | Discharge Summary ---
- NOTES TO OUTPATIENT PROVIDER Notes to Outpatient Provider: 1. Follow up with cardio for LOOP monitoring and further management. 2. New med: Fludrocortisone 0.1mg po daily per cardio. Orders not resulted at time of discharge: Pending orders 03/16/18 00:56 EKG [ECG 12 lead ECG] [ECG] Stat 03/18/18 09:04 CL Insert Loop Recorder [CL] Routine Date of Encounter: 03/19/18 Time of Encounter: 16:30 - Discharge Diagnosis (1) Chest pain Priority: Primary Status: Acute Qualifiers: Chest pain type: unspecified Qualified Code(s): R07.9 - Chest pain, unspecified (2) Bradycardia Priority: Primary Status: Chronic (3) DVT prophylaxis Priority: Secondary Status: Acute Hospital course: Ms. Mathews is a 58 year old female present to ER for presyncope, bradycardia and chest pain. Pt was placed on cardiac monitoring. Her 3 sets of troponin were negative, D-Dimer negative. Cardiology was consulted. Pt had LHC, shows no stenosis. Pt has periodic symptomatic bradycardia with dizziness, sometimes hypotension, never LOC. EP cardiology consulted, consider vasovagal and recommend flurocortisone 0.1mg po daily. LOOP monitor placed by EP cardio consult. PT/OT evaluated pt, recommend resume previous level of care. I saw and examined pt today. Pt has no further dizziness the whole day. Pt asks to go home. Pt said her daughter will stay with her 01/27 and another daughter is a PLASTER HELPER who can provide help as well. Pt was educated to avoid dehydration and if symptoms getting worse she needs to come back to hospital immediately. Pt shows understanding and agreeable. Will D/C pt home with flurocortisone po, f/u with cardio and PCP for further management. - Time Spent with Patient Total time spent providing and/or coordinating discharge services: 40 min Greater than 30 minutes - Discharge Medications Prescriptions: Acetaminophen [Tylenol] 500 mg PO Q6HR PRN #12 tablet PRN Reason: Analgesia Ibuprofen [Motrin] 400 mg PO Q6HR PRN #12 tablet PRN Reason: Fever/Pain Fludrocortisone Acetate [Florinef] 0.1 mg PO DAILY #30 tablet Home Medications: Azelastine 0.1% Nasal [place] [Astelin] 1 spr NS BID 02/11/18 [History] Cetirizine HCl [Zyrtec] 10 mg PO DAILY PRN 02/11/18 [History] Cranberry Conc/C/Bacill Coag [Azo Cranberry Tablet] 1 tab PO Q12H 02/11/18 [ History] Mometasone Furoate [Nasonex] 1 spr NS BID 02/11/18 [History] Acetaminophen [Tylenol] 500 mg PO Q6HR PRN #12 tablet 03/19/18 [Rx] Fludrocortisone Acetate [Florinef] 0.1 mg PO DAILY #30 tablet 03/19/18 [Rx] Ibuprofen [Motrin] 400 mg PO Q6HR PRN #12 tablet 03/19/18 [Rx] Allergies/Adverse Reactions: 3 Allergy/AdvReac Type Severity Reaction Status Date / Time nitroglycerin Allergy Severe See Verified 02/11/18 14:34 Comments ciprofloxacin [From Cipro] Allergy See Verified 07/31/17 09:57 Comments codeine Allergy See Verified 07/31/17 09:57 Comments metronidazole [From Flagyl] Allergy See Verified 07/31/17 09:57 Comments ofloxacin [From Floxin] Allergy See Verified 07/31/17 09:57 Comments Oxycodone [From Percocet] Allergy Itching Verified 07/31/17 09:57 tegaserod [From Zelnorm] Allergy See Verified 07/31/17 09:57 Comments aspirin AdvReac Syncope Verified 02/11/18 13:13 Date of admission: 03/15/18 18:55 Primary care physician: Eagle Mcknight MD Consults: 03/15/18 21:00 Consult to Physician [CONS] Routine Consulting Provider: Richard Jenkins Reason for Consult: CP; symptomatic bradycardia; need for LHC Time Notified: 21:00 Call Completed: Yes 03/18/18 14:26 Consult to Physical Therapy [CONS] Routine Comment: Evaluate, develop and implement POC Reason for Consult: Dizziness Does patient have active BEDREST order?: No Is patient medically & hemodynamically stable?: Yes Discharging clinician: Ni Rojas Anticipated date of discharge: 03/19/18 - Constitutional Vitals: Temp Pulse Resp BP Pulse Ox 97.9 F 57 18 114/48 97 03/19/18 15:18 03/19/18 15:18 03/19/18 15:18 03/19/18 15:18 03/19/18 15:18 General appearance: Present: cooperative, mild distress, A&O X 3, no acute distress, answers questions appropriately Exam: in NAD - Head Head exam: Present: atraumatic, normocephalic - Eye Eye exam: Present: PERRL, conjuntiva pink, sclera anicteric Pupils: Present: PERRL - Neck Neck exam general surgery: Present: supple, trachea midline. Absent: lymphadenopathy - Respiratory Respiratory exam: Present: CTAB. Absent: accessory muscle use, rales, rhonchi, wheezes - Cardiovascular Cardiovascular exam: Present: RRR, +S1, +S2. Absent: diastolic murmur, gallop, rubs, systolic murmur - GI/Abdominal GI/Abdominal exam: Present: normal bowel sounds, soft, no peritoneal signs. Absent: distended, tenderness - Extremities Exam Extremities exam: Present: warm, radial pulses palpable and symmetrical. Absent : calf tenderness, cyanotic, pedal edema - Neurological Exam Neurological exam: Present: CN II-XII intact, oriented X3, no focal deficits. Absent: pronater drift, facial droop, speech deficit - Skin Skin exam: Present: dry, intact - Patient Status Disposition: Home, Self-Care Condition: Good Functional capacity at discharge: independent ambulation (Fall precaution, need 24/7 supervision) Overall status at discharge: other (Still sometimes symptomatic) - Discharge Instructions Follow Up With: Eagle Mcknight MD [Primary Care Provider] - Additional Instructions: ACTIVITY: Moderate activity for the next 7 days. No lifting more than 5 pounds ( gallon of milk) for 1 week. BATHING /SHOWERING: Do not remove the large bandage over the site for 2 days. Do not allow the device to get wet for 7-10 days. You may bathe/shower, but do not use soap and water on the site. When bathing, keep the site dry by covering with Saran wrap or a towel. WOUND CARE: The white steri-strips will start to peel away and come off after 14 days, or your doctor will remove them after [address] anything into or on top of the incision. Do not use cotton swabs. Do not use any antibiotic ointment or Vitamin E on the site. REMINDERS: Notify security personnel at the airport that you have a device before you go through airport security screening. When at places with security monitors, such as a grocery store, do not linger near these monitors. It is fine to walk past them in a normal manner. Refer to your owners manual for more specific directions. CARRY YOUR IDENTIFICATION CARD WITH YOU AT ALL TIMES Return to work as instructed per physician Resume driving as instructed per physician Keep all scheduled follow up appointments Resume medications as instructed Contact [facility] ( ) if: You develop excessive bleeding from insertion or wound site not controlled by applying pressure You develop a fever greater than 101 degrees Fahrenheit Your incision becomes reddened at or around the site Your incision develops yellowish or greenish drainage or development of white pimple-like bumps You experience excessive pain You experience muscle switching If you experience chest pain, shortness of breath, dizziness, or extreme tiredness, stop the activity and rest. Please notify [facility] office if you experience any of these symptoms and they are not relieved by rest please call 911!
--- NOTE | 2018-03-19 17:44 | Electrocardiograph Report ---
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
--- NOTE | 2018-03-19 18:13 | Electrocardiograph Report ---
[place] [id number] Test Date: 2018-03-16 Pat Name: Rajani Mathews Department: 111 Room: 2NE22 Gender: F Day Care Center Director: ANTONIO : 1960 Requested By: Matt Goode Order Number: [id number] Reading MD: Ana Lopez Measurements Intervals [place] Rate: 50 P: SD: 0 QRS: 23 QRSD: 90 T: 14 QT: 438 QTc: 412 Interpretive Statements SINUS BRADYCARDIA OR ECTOPIC ATRIAL RHYTHM NONSPECIFIC ST ABNORMALITIES Electronically Signed On 03-19-2018 18:12:00 EDT by Ana Lopez
--- NOTE | 2018-03-21 08:19 | Electrocardiograph Report ---
[place] [id number] Test Date: 2018-03-17 Pat Name: Rajani Mathews Department: 111 Room: [facility] Gender: F Education And Development Manager: [id number] : 1960 Requested By: Srikanth Yen Order Number: [id number] Reading MD: Jose Price Measurements Intervals [place] Rate: 60 P: -41 WV: 106 QRS: 23 QRSD: 90 T: 30 QT: 426 QTc: 427 Interpretive Statements SINUS RHYTHM WITH SHORT [place] INTERVAL Electronically Signed On 03-21-2018 8:17:00 EDT by Jose Price
== END 2018-03-19 19:00 | disposition home or self-care (01) ==
LOC: EMEROOARM 16:29 → 3BNU 16:29 → SUATTDRO 18:55 → 2NENU 20:23
PROVIDERS: ADMIT Internal Medicine; ATTEND Internal Medicine